=== PATIENT | female | born 1940 | race Caucasian/White ===

== ENCOUNTER 2016-12-19 11:01 | Emergency (ER) | payer MEDICARE, OTHER ==
[~2016-12-19 11:01] MED LIST: /BENA10TA OR; AMBI5TAB OR; AMBI5TAB PO; AMLO5TAB2 PO; ASPI1TAB PO; ASPI81TA45 OR; COLA100C PO; COLA100C2 PO; EVISTA PO; FURO20TA2 PO; GABA-283 PO; HYDR25TA6 OR; LASI20TA PO; LOSA25TA8 PO; MULTIVIT PO; NEUR400C OR; NEUR600T PO; NEXI20CA PO; NEXI40CA PO; NORT25CA2 OR; NORT25CA2 PO; Nebulizer INH; OMEP20TA7 OR; PEG1POW PO; PERC7.5T12 PO; RISATAB3 PO; TIZA4CAP3 PO; TOPI200T4 PO; TOPI50TA OR; TRAVATAN OU; VICODEN PO; VIMP100T PO; VIMPAT PO; VITA-121 PO; VITA100072 PO; VITAMIN B COMPLE1 PO; VITAMIN D50000 UNT OR; VITMTA PO; VYTO10TA5 OR; ZOCO40TA PO; [UNRECOGNIZED DRUG - CODE] PO; albuterol INH
[2016-12-19] MEDS ORDERED: ACETAMINOPH W/CODEINE #3 TAB UD As Ordered ONE (13:40)
[2016-12-19 13:51] LABS: BASO # 0.2 K/mm3 (0.0-0.2); BASO % 2.3 % (0.0-1.0); EOS # 0.2 K/mm3 (0.0-0.50); EOS % 2.2 % (0.0-3.0); LARGE UNSTAINED CELL # 0.2 K/mm3 (0.0-0.4); LARGE UNSTAINED CELL % 2.1 % (0.0-4.0); LYMPH # 2.8 K/mm3 (1.5-4.5); LYMPH % 30.6 % (24.0-44.0); MEAN CORPUSCULAR HEMOGLOBIN 26.7 pg (27.0-33.0); MEAN CORPUSCULAR VOLUME 88.7 fl (80.0-96.0); MONO # 0.4 K/mm3 (0.0-0.8); MONO % 4.7 % (0.0-5.0); NEUTROPHILS % 58.2 % (36.0-66.0); PLATELET COUNT, AUTOMATED 407 k/mm3 (150-450); WHITE BLOOD COUNT 8.6 K/mm3 (4.0-10.0)
[2016-12-19 13:53] LABS: ALBUMIN 3.1 GM/DL (3.2-5.2); ALBUMIN/GLOBULIN RATIO 0.79 (1.00-1.93); ALKALINE PHOSPHATASE 182 U/L (45-117); ALT/SGPT 14 U/L (12-78); AMYLASE 44 U/L (25-115); ANION GAP 8 MEQ/L (8-16); AST/SGOT 8 U/L (15-37); BILIRUBIN,DIRECT < 0.1 MG/DL (0.0-0.2); BILIRUBIN,TOTAL 0.2 MG/DL (0.2-1.0); BLOOD UREA NITROGEN 16 MG/DL (7-18); CALCIUM LEVEL 9.1 MG/DL (8.8-10.2); CARBON DIOXIDE LEVEL 25 MEQ/L (21-32); CHLORIDE LEVEL 110 MEQ/L (98-107); CREATININE FOR GFR 1.08 MG/DL (0.55-1.02); GLOMERULAR FILTRATION RATE 52.5 (>39); GLUCOSE, FASTING 98 MG/DL (83-110); SODIUM LEVEL 143 MEQ/L (136-145)
[2016-12-19] MEDS ORDERED: ISOVUE-370 76% 100ML VIAL (Q9967) As Ordered ONE (14:32)
[2016-12-19 14:44] LABS: ERYTHROCYTE SEDIMENTATION RATE 60 mm/hr (0-30)
[2016-12-19] MEDS ORDERED: diphenhydrAMINE INJ 50MG/ML VIAL (J1200) As Ordered ONE (14:55)
[2016-12-19] MEDS ORDERED: methylPREDNISolone INJ 125 MG/2 ML VIAL (J2930) As Ordered ONE (14:55)
[2016-12-19] MEDS ORDERED: FAMOTIDINE/NS 20 MG/50 ML BAG (S0028) As Ordered ONE (14:55)
--- NOTE | 2016-12-19 16:05 | REP ---
CT study of the abdomen and pelvis with IV but without oral contrast: History: Abdominal pain. Comparison CT study is from 09/18/2016. CT contrast dose: 100 mL of Isovue-[address] findings: Preliminary digital early breastfeeding care specialist radiograph shows an unremarkable bowel gas pattern. There is an area of low density adjacent the falciform ligament consistent with focal fatty infiltration. This is slightly more prominent in size but otherwise unchanged from 06/02/[address] study. No other focal liver lesion is seen. Spleen is unremarkable. No adrenal lesion is seen on either side. The gallbladder shows no abnormality. No pancreatic abnormality is seen. The kidneys enhance symmetrically and are morphologically intact. A normal appendix is seen. There is a broad right paraumbilical ventral hernia with diastases of the rectus abdominis muscle. This is unchanged. Some postoperative fibrosis is seen along the anterior abdominal wall midline. A left lower quadrant colostomy is seen with a parastomal hernia containing a loop of adjacent small intestine. Urinary bladder is intact. Small and large intestinal bowel loops are otherwise unremarkable. There is some residual stool in the rectum. The patient status post hysterectomy. No bony destructive lesion is seen. Impression: Postoperative changes including left colonic resection and left lower quadrant colostomy. Right ventral hernia broad-based unchanged. No acute abdominal abnormality. Normal appendix seen. There is an area of focal fatty infiltration in the liver unchanged. Signed by Angelito Romero MD 12/19/2016 04:32 P
--- NOTE | 2016-12-19 16:10 | EDDOCDS ---
Nurse's Notes [facility] Name: Corry Munroe Age: 76 yrs Sex: Female : 1940 Arrival Date: 12/19/2016 Time: 11:01 Bed I3 / M3 Private MD: Jimi Macias MD Diagnosis: Cellulitis of abdominal wall-SUPERFICIAL;Generalized abdominal pain Presentation: 12/19 11:11 Presenting complaint: Patient states: thinks wound on abdomen is going to open. Reports kr3 noticed redness to area several days ago. Had surgery August,. Adult Sepsis Screening: The patient does not have new or worsening altered mentation. Patient's respiratory rate is less than 22. Systolic blood pressure is greater than 100. Patient has a qSOFA score of 0- Negative Sepsis Screen. Suicide/Homicide risk assessment- the patient denies having any suicidal and/or homicidal ideations and does not present with any other emotional, behavioral or mental health complaints. Status: Patient is not a patient services rep or dependent. Transition of care: patient was not received from another setting of care. 11:11 Acuity: MILAGROS Level 3 kr3 11:11 Method Of Arrival: Walkin/Carried/Asstd kr3 Triage Assessment: 11:14 General: Appears in no apparent distress, Behavior is appropriate for age, cooperative. kr3 Pain: Location: abdomen Pain currently is 10 out of 10 on a pain scale. GI: Reports colostomy draining well Denies nausea, vomiting. Derm: Skin is normal, small area of redness incision line abdomen. Historical: - Allergies: isotope; PENICILLINS; - Home Meds: 1. Ambien 5 mg Oral tab 1 tab nightly 2. amlodipine 5 mg Oral tab 1 tab once daily 3. aspirin 81 mg Oral chew 1 tab once daily 4. furosemide 20 mg Oral tab 1 tab once daily 5. losartan 25 mg oral tab 1 tab 2 times per day 6. multivitamin Oral tab 1 tab daily 7. Neurontin 600 mg Oral tab 1 tab 3 times per day 8. Nexium 40 mg Oral cpDR 1 cap 2 times per day 9. nortriptyline 25 mg Oral cap 1 cap 2 times per day 10. topiramate 100 mg oral tab 2 tabs 2 times per day 11. Vimpat 100 mg oral tab 1 tab 2 times per day 12. Visine Tears 1-0.2-0.2 % ophthalmic drop as needed 13. Vitamin B-12 1,000 mcg Oral tab 1000 mcg daily 14. Vitamin D3 1,000 unit oral tab daily 15. Zocor 40 mg Oral tab 1 tab once daily - PMHx: Chronic Back pain; Epilepsy; GERD; Hypercholesterolemia; Hypertension; Migraine Headaches; TIA; - PSHx: Bowel resection; Colostomy Construction; - Social history: Smoking status: Patient states former smoker of tobacco. No barriers to communication noted, The patient speaks fluent Persian, Speaks appropriately for age. - Family history: Not pertinent. - : The pt / caregiver states he / she is not on anticoagulants. Home medication list is obtained from the patient. - Exposure Risk Screening:: None identified. Screenin:41 Screening information is obtained from the patient. Primary language is Persian. Fall jam1 risk: No risks identified. Assistance ADL's: requires no assistance with activities of daily living. Abuse/DV Screen: The patient / caregiver reports he/she is: not in a situation that causes fear, pain or injury. Nutritional screening: No deficits noted. Exposure Risk Screening: None identified. Advance Directives: Currently, there is a health care proxy, XAVIER . There is no active DNR order. There is a living will, but a copy is not available at this time. There is an active Power of Marketing Proposal Coordinator, XAVIER GOOD . Advance directive information has been placed on a prior [facility] medical record, but the patient/ family does not know when. Further advance directive information is declined. home support is adequate. Assessment: 13:15 General: Appears uncomfortable, Behavior is appropriate for age, cooperative. srm Neurological: No deficits noted. EENT: No deficits noted. GI: Abdomen is non- distended Bowel sounds present X 4 quads. Abd is soft X 4 quads Abd is tender to palpation in epigastric area round area to upper midline incision area. wound center dark in color. 14:51 General: Appears in no apparent distress, comfortable, Behavior is appropriate for age, ms18 cooperative, pleasant, PT returned from CT at this time. Will continue to monitor pt . Neurological: Level of Consciousness is awake, alert, obeys commands, Oriented to person, place, time. Respiratory: Airway is patent is compromised Respiratory effort is even, unlabored. Derm: Skin is pink, warm & dry. 15:59 General: Appears in no apparent distress, comfortable, Behavior is appropriate for age, ms18 cooperative, pleasant. Pain: Location: epigastric area. Neurological: No deficits noted. Respiratory: No deficits noted. Derm: Skin is pink, warm & dry. Vital Signs: 11:03 BP 181 / 67; Pulse 115; Resp 20; Temp 98.9(O); Pulse Ox 100% ; Weight 76.66 kg; Height cmb 5 ft. 1 in. (154.94 cm); Pain 10/10; 15:37 BP 181 / 78; Pulse 73; Resp 20; Temp 96.7; Pulse Ox 98% ; Pain 9/10; jam1 11:03 Body Mass Index 31.93 (76.66 kg, 154.94 cm) cmb Vitals: 11:03 Log In Time: December 19, 2016 at 11:01. RN notified that patient meets Red Flag cmb criteria. ED Course: 11:02 Patient visited by Bee Leigh. cmb 11:02 Jimi Macias is Private Physician. cmb 11:02 Patient moved to Waiting cmb 11:06 Patient moved to Pre RCE cmb 11:13 Triage Initiated kr3 12:21 Patient visited by Terra Recio RN. ead 12:21 Patient moved to Triage 3 kr3 12:44 Patient moved to I7 / 29 mcp 12:45 Patient moved to I3 / M3 jam1 13:01 [facility] Mag[facility]. dt4 13:01 Caitlin Simmons MD is Attending Physician. dt4 13:01 Patient visited by Isa Magdaleno PA-C. dt4 13:15 The patient / caregiver is instructed regarding the plan of care and ED course. srm Accompanied by Family Member, Patient has correct armband on for positive identification. Placed in gown. Bed in low position. Call light in reach. Side rails up X 1. 13:15 Inserted saline lock: 20 gauge in right antecubital area and blood collected. srm 13:15 Missed attempts: 20 gauge in left forearm. srm 13:17 Patient visited by Katelyn Nelson RN. srm 13:29 Amylase Sent. srm 13:29 Basic Metabolic Profile Sent. srm 13:29 CBC with Diff Sent. srm 13:29 Lipase Sent. srm 13:29 Liver Profile Sent. srm 13:39 C REACTIVE PROTEIN QUANTITATIV Sent. srm 13:39 ERYTHROCYTE SEDIMENTATION RATE Sent. srm 14:51 Patient visited by Alaina Whittaker RN. ms18 15:47 Bed in low position. Call light in reach. Side rails up X2. Adult w/ patient. jam1 15:59 Property :Personal belongings accompany Pt. ms18 15:59 Discontinued IV lock intact, bleeding controlled, pressure dressing applied, No ms18 redness/swelling at site. No procedures done that require assistance. 16:07 Patient visited by Alaina Whittaker RN. ms18 Administered Medications: 13:43 Drug: Acetaminophen-Codeine 1 tabs [acetaminophen 300 mg-codeine 30 mg tablet (1 tabs)] srm Route: PO; 15:07 Drug: diphenhydrAMINE 50 mg [diphenhydramine 50 mg/mL injection solution (1 mL)] Route: ms18 IVP; Site: right antecubital; 15:07 Drug: Solu-MEDROL 125 mg [Solu-Medrol 500 mg intravenous solution (125 mg)] Route: IVP; ms18 Site: right antecubital; 15:07 Drug: Famotidine 20 mg [famotidine 10 mg/mL intravenous solution] Route: IVPB; Infused ms18 Over: 30 mins; Site: right antecubital; Order Results: Lab Order: Amylase; SPEC'M 12/19/16 13:12 Test: AMYLASE; Value: 44; Range: 25-115; Units: U/L; Status: F Lab Order: Basic Metabolic Profile; SPEC'M 12/19/16 13:12 Test: GLUCOSE, FASTING; Value: 98; Range: 83-110; Units: MG/DL; Status: F Test: BLOOD UREA NITROGEN; Value: 16; Range: 7-18; Units: MG/DL; Status: F Test: CREATININE FOR GFR; Value: 1.08; Range: 0.55-1.02; Abnormal: Above high normal; Units: MG/DL; Status: F Test: GLOMERULAR FILTRATION RATE; Value: 52.5; Range: >39; Status: F Test: SODIUM LEVEL; Value: 143; Range: 136-145; Units: MEQ/L; Status: F Test: POTASSIUM SERUM; Value: 4.0; Range: 3.5-5.1; Units: MEQ/L; Status: F Test: CHLORIDE LEVEL; Value: 110; Range: 98-107; Abnormal: Above high normal; Units: MEQ/L; Status: F Test: CARBON DIOXIDE LEVEL; Value: 25; Range: 21-32; Units: MEQ/L; Status: F Test: ANION GAP; Value: 8; Range: 8-16; Units: MEQ/L; Status: F Test: CALCIUM LEVEL; Value: 9.1; Range: 8.8-10.2; Units: MG/DL; Status: F Test Note: ; Units are mL/min/1.73 m2 Chronic Kidney Disease Staging per NKF: Stage I & II GFR >=60 Normal to Mildly Decreased Stage III GFR 30-59 Moderately Decreased Stage IV GFR 15-29 Severely Decreased Stage V GFR <15 Very Little GFR Left ESRD GFR <15 on BIOMEDICAL ENGINEERING AIDE Lab Order: CBC with Diff; SPEC'M 12/19/16 13:12 Test: WHITE BLOOD COUNT; Value: 8.6; Range: 4.0-10.0; Units: K/mm3; Status: F Test: RED BLOOD COUNT; Value: 4.36; Range: 4.00-5.40; Units: M/mm3; Status: F Test: HEMOGLOBIN; Value: 11.6; Range: 12.0-16.0; Abnormal: Below low normal; Units: g/dl; Status: F Test: HEMATOCRIT; Value: 38.7; Range: 36.0-47.0; Units: %; Status: F Test: MEAN CORPUSCULAR VOLUME; Value: 88.7; Range: 80.0-96.0; Units: fl; Status: F Test: MEAN CORPUSCULAR HEMOGLOBIN; Value: 26.7; Range: 27.0-33.0; Abnormal: Below low normal; Units: pg; Status: F Test: MEAN CORPUSCULAR HGB CONC; Value: 30.0; Range: 32.0-36.5; Abnormal: Below low normal; Units: g/dl; Status: F Test: RED CELL DISTRIBUTION WIDTH; Value: 16.0; Range: 11.5-14.5; Abnormal: Above high normal; Units: %; Status: F Test: PLATELET COUNT, AUTOMATED; Value: 407; Range: 150-450; Units: k/mm3; Status: F Test: NEUTROPHILS %; Value: 58.2; Range: 36.0-66.0; Units: %; Status: F Test: LYMPH %; Value: 30.6; Range: 24.0-44.0; Units: %; Status: F Test: MONO %; Value: 4.7; Range: 0.0-5.0; Units: %; Status: F Test: EOS %; Value: 2.2; Range: 0.0-3.0; Units: %; Status: F Test: BASO %; Value: 2.3; Range: 0.0-1.0; Abnormal: Above high normal; Units: %; Status: F Test: LARGE UNSTAINED CELL %; Value: 2.1; Range: 0.0-4.0; Units: %; Status: F Test: NEUTROPHILS #; Value: 5.0; Range: 1.8-7.7; Units: K/mm3; Status: F Test: LYMPH #; Value: 2.8; Range: 1.5-4.5; Units: K/mm3; Status: F Test: MONO #; Value: 0.4; Range: 0.0-0.8; Units: K/mm3; Status: F Test: EOS #; Value: 0.2; Range: 0.0-0.50; Units: K/mm3; Status: F Test: BASO #; Value: 0.2; Range: 0.0-0.2; Units: K/mm3; Status: F Test: LARGE UNSTAINED CELL #; Value: 0.2; Range: 0.0-0.4; Units: K/mm3; Status: F Lab Order: Lipase; SPEC'M 12/19/16 13:12 Test: LIPASE; Value: 155; Range: 73-393; Units: U/L; Status: F Lab Order: Liver Profile; SPEC'M 12/19/16 13:12 Test: AST/SGOT; Value: 8; Range: 15-37; Abnormal: Below low normal; Units: U/L; Status: F Test: ALT/SGPT; Value: 14; Range: 12-78; Units: U/L; Status: F Test: ALKALINE PHOSPHATASE; Value: 182; Range: 45-117; Abnormal: Above high normal; Units: U/L; Status: F Test: BILIRUBIN,TOTAL; Value: 0.2; Range: 0.2-1.0; Units: MG/DL; Status: F Test: BILIRUBIN,DIRECT; Value: < 0.1; Range: 0.0-0.2; Units: MG/DL; Status: F Test: TOTAL PROTEIN; Value: 7.0; Range: 6.4-8.2; Units: GM/DL; Status: F Test: ALBUMIN; Value: 3.1; Range: 3.2-5.2; Abnormal: Below low normal; Units: GM/DL; Status: F Test: ALBUMIN/GLOBULIN RATIO; Value: 0.79; Range: 1.00-1.93; Abnormal: Below low normal; Status: F Lab Order: ERYTHROCYTE SEDIMENTATION RATE; SPEC'M 12/19/16 13:12 Test: ERYTHROCYTE SEDIMENTATION RATE; Value: 60; Range: 0-30; Abnormal: Above high normal; Units: mm/hr; Status: F Lab Order: C REACTIVE PROTEIN QUANTITATIV; SPEC'M 12/19/16 13:12 Test: C REACTIVE PROTEIN QUANTITATIV; Value: 1.32; Range: 0.00-0.30; Abnormal: Above high normal; Units: MG/DL; Status: F Outcome: 15:47 Discharge ordered by Provider. dt4 15:59 Discharge Assessment: Patient awake, alert and oriented x 3. No cognitive and/or ms18 functional deficits noted. Patient verbalized understanding of disposition instructions. patient administered narcotics - yes. Pt provided with safe discharge. The following High Risk Discharge criteria are identified: None. Discharged to home ambulatory, with significant other. Condition: good Condition: stable Condition: improved. Discharge instructions given to patient, Instructed on discharge instructions, follow up and referral plans. medication usage, Demonstrated understanding of instructions, medications, Pt was receptive of discharge instructions/ teaching. Prescriptions given X 2. CT Study completed. 16:09 Patient left the ED. ms18 Signatures: Katelyn Nelson, RN Negar Vizcaino RN Britany Sullivan mcp, IBRAHIMA GEM STONE CUTTER jam1 Angelina YapRN RN [id number] Bee Leigh EmilyRN Isa Peters, PA-C PA-C dt4 Whittaker,Alaina,RN RN ms18 MTDD
--- NOTE | 2016-12-19 16:10 | EDDOCDS ---
Physician Documentation [facility] Name: Corry Munroe Age: 76 yrs Sex: Female : 1940 Arrival Date: 12/19/2016 Time: 11:01 Bed I3 / M3 Private MD: Jimi Macias MD Disposition: 12/19/16 15:47 Discharged to Home/Self Care. Impression: Cellulitis of abdominal wall - SUPERFICIAL, Generalized abdominal pain. - Condition is Stable. - Discharge Instructions: Abdominal Pain, Adult, Cellulitis. - Prescriptions for Clindamycin HCl 300 mg Oral Capsule - take 1 capsule by ORAL route every 6 hours; 40 capsule. Tylenol- Codeine #3 300-30 mg Oral Tablet - take 1 tablet by ORAL route every 6 hours As needed MDD: 4 tabs; 20 tablet. - Medication Reconciliation, Local Pharmacy Hours form. - Follow up: Emergency Department; When: As needed; Reason: Worsening of conditions. Follow up: Private Physician; When: 2 - 3 days; Reason: Wound/Symptom Recheck, Recheck today's complaints, Continuance of care. - Problem is new. - Symptoms are unchanged. Historical: - Allergies: isotope; PENICILLINS; - Home Meds: 1. Ambien 5 mg Oral tab 1 tab nightly 2. amlodipine 5 mg Oral tab 1 tab once daily 3. aspirin 81 mg Oral chew 1 tab once daily 4. furosemide 20 mg Oral tab 1 tab once daily 5. losartan 25 mg oral tab 1 tab 2 times per day 6. multivitamin Oral tab 1 tab daily 7. Neurontin 600 mg Oral tab 1 tab 3 times per day 8. Nexium 40 mg Oral cpDR 1 cap 2 times per day 9. nortriptyline 25 mg Oral cap 1 cap 2 times per day 10. topiramate 100 mg oral tab 2 tabs 2 times per day 11. Vimpat 100 mg oral tab 1 tab 2 times per day 12. Visine Tears 1-0.2-0.2 % ophthalmic drop as needed 13. Vitamin B-12 1,000 mcg Oral tab 1000 mcg daily 14. Vitamin D3 1,000 unit oral tab daily 15. Zocor 40 mg Oral tab 1 tab once daily - PMHx: Chronic Back pain; Epilepsy; GERD; Hypercholesterolemia; Hypertension; Migraine Headaches; TIA; - PSHx: Bowel resection; Colostomy Construction; - Social history: Smoking status: Patient states former smoker of tobacco. No barriers to communication noted, The patient speaks fluent Yakut, Speaks appropriately for age. - Family history: Not pertinent. - : The pt / caregiver states he / she is not on anticoagulants. Home medication list is obtained from the patient. - Exposure Risk Screening:: None identified. Vital Signs: 12/19 11:03 BP 181 / 67; Pulse 115; Resp 20; Temp 98.9(O); Pulse Ox 100% ; Weight 76.66 kg / 169.01 cmb lbs; Height 5 ft. 1 in. (154.94 cm); Pain 10/10; 15:37 BP 181 / 78; Pulse 73; Resp 20; Temp 96.7; Pulse Ox 98% ; Pain 9/10; jam1 11:03 Body Mass Index 31.93 (76.66 kg, 154.94 cm) cmb MDM: 11:52 Undress patient appropriately for examination ordered. sd1 11:53 Amylase Ordered. EDMS 11:53 Basic Metabolic Profile Ordered. EDMS 11:53 CBC with Diff Ordered. EDMS 11:53 Lipase Ordered. EDMS 11:53 Liver Profile Ordered. EDMS 11:53 NOTHING BY MOUTH+DIET ordered. EDMS 11:53 ECG WITH READING ER PHYS+CARDIAG ordered. EDMS 13:24 IV Saline Lock ordered. dt4 13:24 Acetaminophen-Codeine 300 mg-30 mg 1 tabs PO once ordered. dt4 13:30 ERYTHROCYTE SEDIMENTATION RATE Ordered. EDMS 13:30 C REACTIVE PROTEIN QUANTITATIV Ordered. EDMS 13:38 ED course: PT SEEN IN ED AND ADMITTED FOR BOWEL PERFORATION ON 09/05/16. HAD ABDOMINAL dt4 SURGERY AND PLACEMENT OF OSTOMY AT THAT TIME. PT STATES NO ISSUES WITH THIS UNTIL 1-2 DAYS AGO. STATES NOW HAVING ABDOMINAL PAIN AND THIS MORNING, NOTED DISCOLORATION OVER HER INCISION SITE THAT IS VERY TENDER. DENIES ANY DRAINAGE, NAUSEA/VOMITING, FEVER. . 14:18 CT ABD & PELVIS: IV Contrast Only Ordered. EDMS 14:44 diphenhydrAMINE 50 mg IVP once ordered. dt4 14:44 Solu-MEDROL 125 mg IVP once ordered. dt4 14:44 Famotidine 20 mg IVPB once over 30 mins; dilute in 50mL of NS ordered. dt4 16:01 Financial registration complete. zo Administered Medications: 13:43 Drug: Acetaminophen-Codeine 1 tabs [acetaminophen 300 mg-codeine 30 mg tablet (1 tabs)] srm Route: PO; 15:07 Drug: diphenhydrAMINE 50 mg [diphenhydramine 50 mg/mL injection solution (1 mL)] Route: ms18 IVP; Site: right antecubital; 15:07 Drug: Solu-MEDROL 125 mg [Solu-Medrol 500 mg intravenous solution (125 mg)] Route: IVP; ms18 Site: right antecubital; 15:07 Drug: Famotidine 20 mg [famotidine 10 mg/mL intravenous solution] Route: IVPB; Infused ms18 Over: 30 mins; Site: right antecubital; Signatures: Dispatcher [employer] EDMS Caitlin Simmons MD MD sd1 Katelyn Nelson RN RN srm Angelina Yap RN RN kr3 April Nava Diane, PA-C PA-Chrissy dt4 Alaina Whittaker RN RN ms18 The chart was reviewed and I authenticate all verbal orders and agree with the evaluation and treatment provided.Corrections: (The following items were deleted from the chart) 13:27 13:25 C REACTIVE PROTEIN QUANTITATIV+LAB ordered. EDMS EDMS 13:27 13:25 ERYTHROCYTE SEDIMENTATION RATE+LAB ordered. EDMS EDMS MTDD
--- NOTE | 2016-12-19 20:26 | ECGEPIP ---
Stationary ECG Study [facility] - ED Test Date: 2016-12-19 Pat Name: CORETTA BENZ Department: Room: - Gender: F Silk Spotter: : 1940 Requested By: Caitlin Simmons Order Number: [id number] Reading MD: Caitlin Simmons Measurements Intervals [place] Rate: 71 P: 53 MN: 140 QRS: -5 QRSD: 78 T: 13 QT: 346 QTc: 377 Interpretive Statements SINUS RHYTHM WITH FREQUENT VENTRICULAR PREMATURE COMPLEXES WITH OCCASIONAL SUPRAVENTRICULAR PREMATURE COMPLEXES LOW QRS VOLTAGE IN PRECORDIAL LEADS ABNORMAL RHYTHM ECG NSTTW ABNORMALLITY PRWP Electronically Signed On 12-19-2016 20:26:29 EST by Caitlin Simmons
--- NOTE | 2016-12-21 17:11 | EDDOCDS ---
Nurse's Notes [facility] Name: Coretta Munroe Age: 76 yrs Sex: Female : 1940 Arrival Date: 12/19/2016 Time: 11:01 Bed I3 / M3 Private MD: Jimi Macias MD Diagnosis: Cellulitis of abdominal wall-SUPERFICIAL;Generalized abdominal pain Presentation: 12/19 11:11 Presenting complaint: Patient states: thinks wound on abdomen is going to open. Reports kr3 noticed redness to area several days ago. Had surgery August,. Adult Sepsis Screening: The patient does not have new or worsening altered mentation. Patient's respiratory rate is less than 22. Systolic blood pressure is greater than 100. Patient has a qSOFA score of 0- Negative Sepsis Screen. Suicide/Homicide risk assessment- the patient denies having any suicidal and/or homicidal ideations and does not present with any other emotional, behavioral or mental health complaints. Status: Patient is not a servicer travel trailers or dependent. Transition of care: patient was not received from another setting of care. 11:11 Acuity: MILAGROS Level 3 kr3 11:11 Method Of Arrival: Walkin/Carried/Asstd kr3 Triage Assessment: 11:14 General: Appears in no apparent distress, Behavior is appropriate for age, cooperative. kr3 Pain: Location: abdomen Pain currently is 10 out of 10 on a pain scale. GI: Reports colostomy draining well Denies nausea, vomiting. Derm: Skin is normal, small area of redness incision line abdomen. Historical: - Allergies: isotope; PENICILLINS; - Home Meds: 1. Ambien 5 mg Oral tab 1 tab nightly 2. amlodipine 5 mg Oral tab 1 tab once daily 3. aspirin 81 mg Oral chew 1 tab once daily 4. furosemide 20 mg Oral tab 1 tab once daily 5. losartan 25 mg oral tab 1 tab 2 times per day 6. multivitamin Oral tab 1 tab daily 7. Neurontin 600 mg Oral tab 1 tab 3 times per day 8. Nexium 40 mg Oral cpDR 1 cap 2 times per day 9. nortriptyline 25 mg Oral cap 1 cap 2 times per day 10. topiramate 100 mg oral tab 2 tabs 2 times per day 11. Vimpat 100 mg oral tab 1 tab 2 times per day 12. Visine Tears 1-0.2-0.2 % ophthalmic drop as needed 13. Vitamin B-12 1,000 mcg Oral tab 1000 mcg daily 14. Vitamin D3 1,000 unit oral tab daily 15. Zocor 40 mg Oral tab 1 tab once daily - PMHx: Chronic Back pain; Epilepsy; GERD; Hypercholesterolemia; Hypertension; Migraine Headaches; TIA; - PSHx: Bowel resection; Colostomy Construction; - Social history: Smoking status: Patient states former smoker of tobacco. No barriers to communication noted, The patient speaks fluent Occitan, Speaks appropriately for age. - Family history: Not pertinent. - : The pt / caregiver states he / she is not on anticoagulants. Home medication list is obtained from the patient. - Exposure Risk Screening:: None identified. Screenin:41 Screening information is obtained from the patient. Primary language is Occitan. Fall jam1 risk: No risks identified. Assistance ADL's: requires no assistance with activities of daily living. Abuse/DV Screen: The patient / caregiver reports he/she is: not in a situation that causes fear, pain or injury. Nutritional screening: No deficits noted. Exposure Risk Screening: None identified. Advance Directives: Currently, there is a health care proxy, XAVIER . There is no active DNR order. There is a living will, but a copy is not available at this time. There is an active Power of Crime Scene Specialist, XAVIER GOOD . Advance directive information has been placed on a prior [facility] medical record, but the patient/ family does not know when. Further advance directive information is declined. home support is adequate. Assessment: 13:15 General: Appears uncomfortable, Behavior is appropriate for age, cooperative. srm Neurological: No deficits noted. EENT: No deficits noted. GI: Abdomen is non- distended Bowel sounds present X 4 quads. Abd is soft X 4 quads Abd is tender to palpation in epigastric area round area to upper midline incision area. wound center dark in color. 14:51 General: Appears in no apparent distress, comfortable, Behavior is appropriate for age, ms18 cooperative, pleasant, PT returned from CT at this time. Will continue to monitor pt . Neurological: Level of Consciousness is awake, alert, obeys commands, Oriented to person, place, time. Respiratory: Airway is patent is compromised Respiratory effort is even, unlabored. Derm: Skin is pink, warm & dry. 15:59 General: Appears in no apparent distress, comfortable, Behavior is appropriate for age, ms18 cooperative, pleasant. Pain: Location: epigastric area. Neurological: No deficits noted. Respiratory: No deficits noted. Derm: Skin is pink, warm & dry. Vital Signs: 11:03 BP 181 / 67; Pulse 115; Resp 20; Temp 98.9(O); Pulse Ox 100% ; Weight 76.66 kg; Height cmb 5 ft. 1 in. (154.94 cm); Pain 10/10; 15:37 BP 181 / 78; Pulse 73; Resp 20; Temp 96.7; Pulse Ox 98% ; Pain 9/10; jam1 11:03 Body Mass Index 31.93 (76.66 kg, 154.94 cm) cmb Vitals: 11:03 Log In Time: December 19, 2016 at 11:01. RN notified that patient meets Red Flag cmb criteria. ED Course: 11:02 Patient visited by Bee Leigh. cmb 11:02 Jimi Macias is Private Physician. cmb 11:02 Patient moved to Waiting cmb 11:06 Patient moved to Pre RCE cmb 11:13 Triage Initiated kr3 12:21 Patient visited by Terra Recio RN. ead 12:21 Patient moved to Triage 3 kr3 12:44 Patient moved to I7 / 29 mcp 12:45 Patient moved to I3 / M3 jam1 13:01 [facility]. dt4 13:01 Caitlin Simmons MD is Attending Physician. dt4 13:01 Patient visited by Isa Magdaleno PA-C. dt4 13:15 The patient / caregiver is instructed regarding the plan of care and ED course. srm Accompanied by Family Member, Patient has correct armband on for positive identification. Placed in gown. Bed in low position. Call light in reach. Side rails up X 1. 13:15 Inserted saline lock: 20 gauge in right antecubital area and blood collected. srm 13:15 Missed attempts: 20 gauge in left forearm. srm 13:17 Patient visited by Katelyn Nelson RN. srm 13:29 Amylase Sent. srm 13:29 Basic Metabolic Profile Sent. srm 13:29 CBC with Diff Sent. srm 13:29 Lipase Sent. srm 13:29 Liver Profile Sent. srm 13:39 C REACTIVE PROTEIN QUANTITATIV Sent. srm 13:39 ERYTHROCYTE SEDIMENTATION RATE Sent. srm 14:51 Patient visited by Alaina Whittaker RN. ms18 15:47 Bed in low position. Call light in reach. Side rails up X2. Adult w/ patient. jam1 15:59 Property :Personal belongings accompany Pt. ms18 15:59 Discontinued IV lock intact, bleeding controlled, pressure dressing applied, No ms18 redness/swelling at site. No procedures done that require assistance. 16:07 Patient visited by Alaina Whittaker RN. ms18 16:15 [facility] Payment Agreement was scanned into [employer] and attached to record. zo 16:44 CT ABD & PELVIS: IV Contrast Only Returned. EDMS 21:17 EKG-ADULT Returned. EDMS 12/20 03:38 T-Sheet-- Draft Copy was scanned into [employer] and attached to record. hs2 10:01 ECG/EKG was scanned into [employer] and attached to record. gb 10:02 Radiology Report was scanned into [employer] and attached to record. gb Administered Medications: 12/19 13:43 Drug: Acetaminophen-Codeine 1 tabs [acetaminophen 300 mg-codeine 30 mg tablet (1 tabs)] srm Route: PO; 15:07 Drug: diphenhydrAMINE 50 mg [diphenhydramine 50 mg/mL injection solution (1 mL)] Route: ms18 IVP; Site: right antecubital; 15:07 Drug: Solu-MEDROL 125 mg [Solu-Medrol 500 mg intravenous solution (125 mg)] Route: IVP; ms18 Site: right antecubital; 15:07 Drug: Famotidine 20 mg [famotidine 10 mg/mL intravenous solution] Route: IVPB; Infused ms18 Over: 30 mins; Site: right antecubital; Order Results: Lab Order: Amylase; SPEC'M 12/19/16 13:12 Test: AMYLASE; Value: 44; Range: 25-115; Units: U/L; Status: F Lab Order: Basic Metabolic Profile; SPEC'M 12/19/16 13:12 Test: GLUCOSE, FASTING; Value: 98; Range: 83-110; Units: MG/DL; Status: F Test: BLOOD UREA NITROGEN; Value: 16; Range: 7-18; Units: MG/DL; Status: F Test: CREATININE FOR GFR; Value: 1.08; Range: 0.55-1.02; Abnormal: Above high normal; Units: MG/DL; Status: F Test: GLOMERULAR FILTRATION RATE; Value: 52.5; Range: >39; Status: F Test: SODIUM LEVEL; Value: 143; Range: 136-145; Units: MEQ/L; Status: F Test: POTASSIUM SERUM; Value: 4.0; Range: 3.5-5.1; Units: MEQ/L; Status: F Test: CHLORIDE LEVEL; Value: 110; Range: 98-107; Abnormal: Above high normal; Units: MEQ/L; Status: F Test: CARBON DIOXIDE LEVEL; Value: 25; Range: 21-32; Units: MEQ/L; Status: F Test: ANION GAP; Value: 8; Range: 8-16; Units: MEQ/L; Status: F Test: CALCIUM LEVEL; Value: 9.1; Range: 8.8-10.2; Units: MG/DL; Status: F Test Note: ; Units are mL/min/1.73 m2 Chronic Kidney Disease Staging per NKF: Stage I & II GFR >=60 Normal to Mildly Decreased Stage III GFR 30-59 Moderately Decreased Stage IV GFR 15-29 Severely Decreased Stage V GFR <15 Very Little GFR Left ESRD GFR <15 on PAVING BLOCK CUTTER Lab Order: CBC with Diff; SPEC'M 12/19/16 13:12 Test: WHITE BLOOD COUNT; Value: 8.6; Range: 4.0-10.0; Units: K/mm3; Status: F Test: RED BLOOD COUNT; Value: 4.36; Range: 4.00-5.40; Units: M/mm3; Status: F Test: HEMOGLOBIN; Value: 11.6; Range: 12.0-16.0; Abnormal: Below low normal; Units: g/dl; Status: F Test: HEMATOCRIT; Value: 38.7; Range: 36.0-47.0; Units: %; Status: F Test: MEAN CORPUSCULAR VOLUME; Value: 88.7; Range: 80.0-96.0; Units: fl; Status: F Test: MEAN CORPUSCULAR HEMOGLOBIN; Value: 26.7; Range: 27.0-33.0; Abnormal: Below low normal; Units: pg; Status: F Test: MEAN CORPUSCULAR HGB CONC; Value: 30.0; Range: 32.0-36.5; Abnormal: Below low normal; Units: g/dl; Status: F Test: RED CELL DISTRIBUTION WIDTH; Value: 16.0; Range: 11.5-14.5; Abnormal: Above high normal; Units: %; Status: F Test: PLATELET COUNT, AUTOMATED; Value: 407; Range: 150-450; Units: k/mm3; Status: F Test: NEUTROPHILS %; Value: 58.2; Range: 36.0-66.0; Units: %; Status: F Test: LYMPH %; Value: 30.6; Range: 24.0-44.0; Units: %; Status: F Test: MONO %; Value: 4.7; Range: 0.0-5.0; Units: %; Status: F Test: EOS %; Value: 2.2; Range: 0.0-3.0; Units: %; Status: F Test: BASO %; Value: 2.3; Range: 0.0-1.0; Abnormal: Above high normal; Units: %; Status: F Test: LARGE UNSTAINED CELL %; Value: 2.1; Range: 0.0-4.0; Units: %; Status: F Test: NEUTROPHILS #; Value: 5.0; Range: 1.8-7.7; Units: K/mm3; Status: F Test: LYMPH #; Value: 2.8; Range: 1.5-4.5; Units: K/mm3; Status: F Test: MONO #; Value: 0.4; Range: 0.0-0.8; Units: K/mm3; Status: F Test: EOS #; Value: 0.2; Range: 0.0-0.50; Units: K/mm3; Status: F Test: BASO #; Value: 0.2; Range: 0.0-0.2; Units: K/mm3; Status: F Test: LARGE UNSTAINED CELL #; Value: 0.2; Range: 0.0-0.4; Units: K/mm3; Status: F Lab Order: Lipase; SPEC'M 12/19/16 13:12 Test: LIPASE; Value: 155; Range: 73-393; Units: U/L; Status: F Lab Order: Liver Profile; SPEC'M 12/19/16 13:12 Test: AST/SGOT; Value: 8; Range: 15-37; Abnormal: Below low normal; Units: U/L; Status: F Test: ALT/SGPT; Value: 14; Range: 12-78; Units: U/L; Status: F Test: ALKALINE PHOSPHATASE; Value: 182; Range: 45-117; Abnormal: Above high normal; Units: U/L; Status: F Test: BILIRUBIN,TOTAL; Value: 0.2; Range: 0.2-1.0; Units: MG/DL; Status: F Test: BILIRUBIN,DIRECT; Value: < 0.1; Range: 0.0-0.2; Units: MG/DL; Status: F Test: TOTAL PROTEIN; Value: 7.0; Range: 6.4-8.2; Units: GM/DL; Status: F Test: ALBUMIN; Value: 3.1; Range: 3.2-5.2; Abnormal: Below low normal; Units: GM/DL; Status: F Test: ALBUMIN/GLOBULIN RATIO; Value: 0.79; Range: 1.00-1.93; Abnormal: Below low normal; Status: F Lab Order: ERYTHROCYTE SEDIMENTATION RATE; SPEC'M 12/19/16 13:12 Test: ERYTHROCYTE SEDIMENTATION RATE; Value: 60; Range: 0-30; Abnormal: Above high normal; Units: mm/hr; Status: F Lab Order: C REACTIVE PROTEIN QUANTITATIV; SPEC'M 12/19/16 13:12 Test: C REACTIVE PROTEIN QUANTITATIV; Value: 1.32; Range: 0.00-0.30; Abnormal: Above high normal; Units: MG/DL; Status: F Radiology Order: EKG-ADULT Test: EKG-ADULT REASON FOR EXAMINATION: Abdomen Pain; Stationary ECG Study; [facility] - ED; ; Test Date: 2016-12-19; Pat Name: CORETTA MUNROE Department:; Room: -; 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:; : 1940 Requested By: Caitlin Simmons; Order Number: [id number] Reading MD: Caitlin Simmons; Measurements; Intervals [place]; Rate: 71 P: 53; GA: 140 QRS: -5; QRSD: 78 T: 13; QT: 346; QTc: 377; Interpretive Statements; SINUS RHYTHM WITH FREQUENT VENTRICULAR PREMATURE COMPLEXES WITH OCCASIONAL; SUPRAVENTRICULAR PREMATURE COMPLEXES; LOW QRS VOLTAGE IN PRECORDIAL LEADS; ABNORMAL RHYTHM ECG; NSTTW ABNORMALLITY; PRWP; Electronically Signed On 12-19-2016 20:26:29 EST by Caitlin Simmons; Radiology Order: CT ABD & PELVIS: IV Contrast Only Test: CT ABD & PELVIS: IV Contrast Only REASON FOR EXAMINATION: Abdomen Pain; CT study of the abdomen and pelvis with IV but without oral contrast:; ; History: Abdominal pain.; ; Comparison CT study is from 09/18/2016.; ; CT contrast dose: 100 mL of Isovue-370 is administered intravenously.; ; CT findings: 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 There is an area of low density adjacent the falciform ligament; consistent with focal fatty infiltration. This is slightly more prominent in; size but otherwise unchanged from 06/02/[address] study. No other focal; liver lesion is seen. Spleen is unremarkable. No adrenal lesion is seen on; either side. The gallbladder shows no abnormality. No pancreatic abnormality is; seen. The kidneys enhance symmetrically and are morphologically intact. A; normal appendix is seen. There is a broad right paraumbilical ventral hernia; with diastases of the rectus abdominis muscle. This is unchanged. Some; postoperative fibrosis is seen along the anterior abdominal wall midline. A left; lower quadrant colostomy is seen with a parastomal hernia containing a loop of; adjacent small intestine. Urinary bladder is intact. Small and large intestinal; bowel loops are otherwise unremarkable. There is some residual stool in the; rectum. The patient status post hysterectomy. No bony destructive lesion is; seen.; ; Impression:; ; Postoperative changes including left colonic resection and left lower quadrant; colostomy. Right ventral hernia broad-based unchanged. No acute abdominal; abnormality. Normal appendix seen. There is an area of focal fatty infiltration; in the liver unchanged.; ; ; Signed by; Angelito Romero MD 12/19/2016 04:32 P; Outcome: 15:47 Discharge ordered by Provider. dt4 15:59 Discharge Assessment: Patient awake, alert and oriented x 3. No cognitive and/or ms18 functional deficits noted. Patient verbalized understanding of disposition instructions. patient administered narcotics - yes. Pt provided with safe discharge. The following High Risk Discharge criteria are identified: None. Discharged to home ambulatory, with significant other. Condition: good Condition: stable Condition: improved. Discharge instructions given to patient, Instructed on discharge instructions, follow up and referral plans. medication usage, Demonstrated understanding of instructions, medications, Pt was receptive of discharge instructions/ teaching. Prescriptions given X 2. CT Study completed. 16:09 Patient left the ED. ms18 Signatures: Dispatcher [employer] EDMS Katelyn Nelson, RN RN Negar Hameed, RN RN Britany Cooley, IBRAHIMA BUSINESS OWNER/ENGINEER jam1 Laxmi Eric, Reg Reg gb Angelina YapRN RN kr3 April Nava Chelsea cmb Dunaway, Emily, RN RN Isa Mckeon, PA-C PA-C dt4 Alaina Whittaker RN RN ms18 Susi Conde, Reg Reg hs2 Chart Complete [facility]
--- NOTE | 2016-12-21 17:11 | EDDOCDS ---
Physician Documentation [facility] Name: Corry Munroe Age: 76 yrs Sex: Female : 1940 Arrival Date: 12/19/2016 Time: 11:01 Bed I3 / M3 Private MD: Jimi Macias MD Disposition: 12/19/16 15:47 Discharged to Home/Self Care. Impression: Cellulitis of abdominal wall - SUPERFICIAL, Generalized abdominal pain. - Condition is Stable. - Discharge Instructions: Abdominal Pain, Adult, Cellulitis. - Prescriptions for Clindamycin HCl 300 mg Oral Capsule - take 1 capsule by ORAL route every 6 hours; 40 capsule. Tylenol- Codeine #3 300-30 mg Oral Tablet - take 1 tablet by ORAL route every 6 hours As needed MDD: 4 tabs; 20 tablet. - Medication Reconciliation, Local Pharmacy Hours form. - Follow up: Emergency Department; When: As needed; Reason: Worsening of conditions. Follow up: Private Physician; When: 2 - 3 days; Reason: Wound/Symptom Recheck, Recheck today's complaints, Continuance of care. - Problem is new. - Symptoms are unchanged. Historical: - Allergies: isotope; PENICILLINS; - Home Meds: 1. Ambien 5 mg Oral tab 1 tab nightly 2. amlodipine 5 mg Oral tab 1 tab once daily 3. aspirin 81 mg Oral chew 1 tab once daily 4. furosemide 20 mg Oral tab 1 tab once daily 5. losartan 25 mg oral tab 1 tab 2 times per day 6. multivitamin Oral tab 1 tab daily 7. Neurontin 600 mg Oral tab 1 tab 3 times per day 8. Nexium 40 mg Oral cpDR 1 cap 2 times per day 9. nortriptyline 25 mg Oral cap 1 cap 2 times per day 10. topiramate 100 mg oral tab 2 tabs 2 times per day 11. Vimpat 100 mg oral tab 1 tab 2 times per day 12. Visine Tears 1-0.2-0.2 % ophthalmic drop as needed 13. Vitamin B-12 1,000 mcg Oral tab 1000 mcg daily 14. Vitamin D3 1,000 unit oral tab daily 15. Zocor 40 mg Oral tab 1 tab once daily - PMHx: Chronic Back pain; Epilepsy; GERD; Hypercholesterolemia; Hypertension; Migraine Headaches; TIA; - PSHx: Bowel resection; Colostomy Construction; - Social history: Smoking status: Patient states former smoker of tobacco. No barriers to communication noted, The patient speaks fluent Divehi, Speaks appropriately for age. - Family history: Not pertinent. - : The pt / caregiver states he / she is not on anticoagulants. Home medication list is obtained from the patient. - Exposure Risk Screening:: None identified. Vital Signs: 12/19 11:03 BP 181 / 67; Pulse 115; Resp 20; Temp 98.9(O); Pulse Ox 100% ; Weight 76.66 kg / 169.01 cmb lbs; Height 5 ft. 1 in. (154.94 cm); Pain 10/10; 15:37 BP 181 / 78; Pulse 73; Resp 20; Temp 96.7; Pulse Ox 98% ; Pain 9/10; jam1 11:03 Body Mass Index 31.93 (76.66 kg, 154.94 cm) cmb MDM: 11:52 Undress patient appropriately for examination ordered. sd1 11:53 Amylase Ordered. EDMS 11:53 Basic Metabolic Profile Ordered. EDMS 11:53 CBC with Diff Ordered. EDMS 11:53 Lipase Ordered. EDMS 11:53 Liver Profile Ordered. EDMS 11:53 NOTHING BY MOUTH+DIET ordered. EDMS 11:53 ECG WITH READING ER PHYS+CARDIAG ordered. EDMS 13:24 IV Saline Lock ordered. dt4 13:24 Acetaminophen-Codeine 300 mg-30 mg 1 tabs PO once ordered. dt4 13:30 ERYTHROCYTE SEDIMENTATION RATE Ordered. EDMS 13:30 C REACTIVE PROTEIN QUANTITATIV Ordered. EDMS 13:38 ED course: PT SEEN IN ED AND ADMITTED FOR BOWEL PERFORATION ON 09/05/16. HAD ABDOMINAL dt4 SURGERY AND PLACEMENT OF OSTOMY AT THAT TIME. PT STATES NO ISSUES WITH THIS UNTIL 1-2 DAYS AGO. STATES NOW HAVING ABDOMINAL PAIN AND THIS MORNING, NOTED DISCOLORATION OVER HER INCISION SITE THAT IS VERY TENDER. DENIES ANY DRAINAGE, NAUSEA/VOMITING, FEVER. . 14:18 CT ABD & PELVIS: IV Contrast Only Ordered. EDMS 14:44 diphenhydrAMINE 50 mg IVP once ordered. dt4 14:44 Solu-MEDROL 125 mg IVP once ordered. dt4 14:44 Famotidine 20 mg IVPB once over 30 mins; dilute in 50mL of NS ordered. dt4 16:01 Financial registration complete. zo 16:15 [facility] Payment Agreement was scanned into [employer] and attached to record. zo 12/20 03:38 T-Sheet-- Draft Copy was scanned into [employer] and attached to record. hs2 10:01 ECG/EKG was scanned into [employer] and attached to record. gb 10:02 Radiology Report was scanned into [employer] and attached to record. gb Administered Medications: 12/19 13:43 Drug: Acetaminophen-Codeine 1 tabs [acetaminophen 300 mg-codeine 30 mg tablet (1 tabs)] srm Route: PO; 15:07 Drug: diphenhydrAMINE 50 mg [diphenhydramine 50 mg/mL injection solution (1 mL)] Route: ms18 IVP; Site: right antecubital; 15:07 Drug: Solu-MEDROL 125 mg [Solu-Medrol 500 mg intravenous solution (125 mg)] Route: IVP; ms18 Site: right antecubital; 15:07 Drug: Famotidine 20 mg [famotidine 10 mg/mL intravenous solution] Route: IVPB; Infused ms18 Over: 30 mins; Site: right antecubital; Signatures: Dispatcher [employer] EDMS Caitlin Simmons MD MD sd1 Katelyn Nelson RN RN [facility] Laxmi Eric, Reg Reg gb Angelina Yap,MEAGAN RN kr3 April Nava Diane, PA-C PAJuan dt4 Alaina Whittaker RN RN ms18 Susi Conde, Reg Reg hs2 The chart was reviewed and I authenticate all verbal orders and agree with the evaluation and treatment provided.Corrections: (The following items were deleted from the chart) 13: 13:25 C REACTIVE PROTEIN QUANTITATIV+LAB ordered. EDMS EDMS 13: 13:25 ERYTHROCYTE SEDIMENTATION RATE+LAB ordered. EDMS EDMS Attachments: 16:15 [facility] Payment Agreement zo 12/20 03:38 T-Sheet-- Draft Copy hs2 10:01 ECG/EKG gb Chart Complete MTDD
--- NOTE | 2016-12-21 17:11 | EDDOCDS ---
Physician Documentation [facility] Name: Corry Munroe Age: 76 yrs Sex: Female : 1940 Arrival Date: 12/19/2016 Time: 11:01 Bed I3 / M3 Private MD: Jimi Macias MD Disposition: 12/19/16 15:47 Discharged to Home/Self Care. Impression: Cellulitis of abdominal wall - SUPERFICIAL, Generalized abdominal pain. - Condition is Stable. - Discharge Instructions: Abdominal Pain, Adult, Cellulitis. - Prescriptions for Clindamycin HCl 300 mg Oral Capsule - take 1 capsule by ORAL route every 6 hours; 40 capsule. Tylenol- Codeine #3 300-30 mg Oral Tablet - take 1 tablet by ORAL route every 6 hours As needed MDD: 4 tabs; 20 tablet. - Medication Reconciliation, Local Pharmacy Hours form. - Follow up: Emergency Department; When: As needed; Reason: Worsening of conditions. Follow up: Private Physician; When: 2 - 3 days; Reason: Wound/Symptom Recheck, Recheck today's complaints, Continuance of care. - Problem is new. - Symptoms are unchanged. Historical: - Allergies: isotope; PENICILLINS; - Home Meds: 1. Ambien 5 mg Oral tab 1 tab nightly 2. amlodipine 5 mg Oral tab 1 tab once daily 3. aspirin 81 mg Oral chew 1 tab once daily 4. furosemide 20 mg Oral tab 1 tab once daily 5. losartan 25 mg oral tab 1 tab 2 times per day 6. multivitamin Oral tab 1 tab daily 7. Neurontin 600 mg Oral tab 1 tab 3 times per day 8. Nexium 40 mg Oral cpDR 1 cap 2 times per day 9. nortriptyline 25 mg Oral cap 1 cap 2 times per day 10. topiramate 100 mg oral tab 2 tabs 2 times per day 11. Vimpat 100 mg oral tab 1 tab 2 times per day 12. Visine Tears 1-0.2-0.2 % ophthalmic drop as needed 13. Vitamin B-12 1,000 mcg Oral tab 1000 mcg daily 14. Vitamin D3 1,000 unit oral tab daily 15. Zocor 40 mg Oral tab 1 tab once daily - PMHx: Chronic Back pain; Epilepsy; GERD; Hypercholesterolemia; Hypertension; Migraine Headaches; TIA; - PSHx: Bowel resection; Colostomy Construction; - Social history: Smoking status: Patient states former smoker of tobacco. No barriers to communication noted, The patient speaks fluent Czech, Speaks appropriately for age. - Family history: Not pertinent. - : The pt / caregiver states he / she is not on anticoagulants. Home medication list is obtained from the patient. - Exposure Risk Screening:: None identified. Vital Signs: 12/19 11:03 BP 181 / 67; Pulse 115; Resp 20; Temp 98.9(O); Pulse Ox 100% ; Weight 76.66 kg / 169.01 cmb lbs; Height 5 ft. 1 in. (154.94 cm); Pain 10/10; 15:37 BP 181 / 78; Pulse 73; Resp 20; Temp 96.7; Pulse Ox 98% ; Pain 9/10; jam1 11:03 Body Mass Index 31.93 (76.66 kg, 154.94 cm) cmb MDM: 11:52 Undress patient appropriately for examination ordered. sd1 11:53 Amylase Ordered. EDMS 11:53 Basic Metabolic Profile Ordered. EDMS 11:53 CBC with Diff Ordered. EDMS 11:53 Lipase Ordered. EDMS 11:53 Liver Profile Ordered. EDMS 11:53 NOTHING BY MOUTH+DIET ordered. EDMS 11:53 ECG WITH READING ER PHYS+CARDIAG ordered. EDMS 13:24 IV Saline Lock ordered. dt4 13:24 Acetaminophen-Codeine 300 mg-30 mg 1 tabs PO once ordered. dt4 13:30 ERYTHROCYTE SEDIMENTATION RATE Ordered. EDMS 13:30 C REACTIVE PROTEIN QUANTITATIV Ordered. EDMS 13:38 ED course: PT SEEN IN ED AND ADMITTED FOR BOWEL PERFORATION ON 09/05/16. HAD ABDOMINAL dt4 SURGERY AND PLACEMENT OF OSTOMY AT THAT TIME. PT STATES NO ISSUES WITH THIS UNTIL 1-2 DAYS AGO. STATES NOW HAVING ABDOMINAL PAIN AND THIS MORNING, NOTED DISCOLORATION OVER HER INCISION SITE THAT IS VERY TENDER. DENIES ANY DRAINAGE, NAUSEA/VOMITING, FEVER. . 14:18 CT ABD & PELVIS: IV Contrast Only Ordered. EDMS 14:44 diphenhydrAMINE 50 mg IVP once ordered. dt4 14:44 Solu-MEDROL 125 mg IVP once ordered. dt4 14:44 Famotidine 20 mg IVPB once over 30 mins; dilute in 50mL of NS ordered. dt4 16:01 Financial registration complete. zo 16:15 [facility] Payment Agreement was scanned into [employer] and attached to record. zo 12/20 03:38 T-Sheet-- Draft Copy was scanned into [employer] and attached to record. hs2 10:01 ECG/EKG was scanned into [employer] and attached to record. gb 10:02 Radiology Report was scanned into [employer] and attached to record. gb Administered Medications: 12/19 13:43 Drug: Acetaminophen-Codeine 1 tabs [acetaminophen 300 mg-codeine 30 mg tablet (1 tabs)] srm Route: PO; 15:07 Drug: diphenhydrAMINE 50 mg [diphenhydramine 50 mg/mL injection solution (1 mL)] Route: ms18 IVP; Site: right antecubital; 15:07 Drug: Solu-MEDROL 125 mg [Solu-Medrol 500 mg intravenous solution (125 mg)] Route: IVP; ms18 Site: right antecubital; 15:07 Drug: Famotidine 20 mg [famotidine 10 mg/mL intravenous solution] Route: IVPB; Infused ms18 Over: 30 mins; Site: right antecubital; Signatures: Dispatcher [employer] EDMS Caitlin Simmons MD MD sd1 Katelyn Nelson RN RN [facility] Laxmi Eric, Reg Reg gb Angelina Yap,MEAGAN RN kr3 April Nava Diane, PA-C PAJuan dt4 Alaina Whittaker RN RN ms18 Susi Conde, Reg Reg hs2 The chart was reviewed and I authenticate all verbal orders and agree with the evaluation and treatment provided.Corrections: (The following items were deleted from the chart) 13: 13:25 C REACTIVE PROTEIN QUANTITATIV+LAB ordered. EDMS EDMS 13: 13:25 ERYTHROCYTE SEDIMENTATION RATE+LAB ordered. EDMS EDMS Attachments: 16:15 [facility] Payment Agreement zo 12/20 03:38 T-Sheet-- Draft Copy hs2 10:01 ECG/EKG gb Chart Complete MTDD
== END 2016-12-19 16:09 | disposition home or self-care (01) ==
LOC: M ED 11:01
DX: L03.311 Cellulitis of abdominal wall (principal); R10.84 Generalized abdominal pain; M54.9 Dorsalgia, unspecified; G40.909 Epilepsy, unspecified, not intractable, without status epilepticus; K21.9 Gastro-esophageal reflux disease without esophagitis; E78.00 Pure hypercholesterolemia, unspecified; I10 Essential (primary) hypertension; G43.909 Migraine, unspecified, not intractable, without status migrainosus; Z86.73 Personal history of transient ischemic attack (TIA), and cerebral infarction without residual deficits; Z79.82 Long term (current) use of aspirin; Z79.899 Other long term (current) drug therapy; Z88.8 Allergy status to other drugs, medicaments and biological substances; Z88.0 Allergy status to penicillin; Z87.891 Personal history of nicotine dependence
CPT/HCPCS: 36415; 74177; 80048; 80076; 82150; 83690; 85025; 85652; 86140; 93005; 96374; 96375; 99284; J1200; J2930; Q9967

== ENCOUNTER → 2017-02-14 | Outpatient (CLI) | payer MEDICARE, OTHER ==
[~2017-02-14] VITALS: Ht 154.9 cm; Wt 81.2 kg
[~2017-02-14] MED LIST changes: +LIDOCAINE 2% INJ 100 MG/5 ML SDV (FOR ANES.) As Ordered ONE; +MULT1TAB10 PO; +NS 1,000 ML IV SCH; +PROPOFOL 200 MG/20 ML VIAL As Ordered ONE
[2017-02-14 10:12] VITALS: BP 142/60
--- NOTE | 2017-02-14 10:21 | ROOR ---
Patient Name: Corry Munroe Procedure Date: 02/14/2017 9:06 AM Date of : 1940 Age: 76 Room: [facility] Gender: Female Note Status: Finalized Procedure: Colonoscopy via Stoma with Endoscopy of Meliza Pouch Indications: Post surgical follow-up Providers: DO Jaquelin Yu MD: Jimi Macias MD Requesting Provider: Medicines: Propofol per Anesthesia Complications: No immediate complications. Procedure: Pre-Anesthesia Assessment: - Prior to the procedure, a History and Physical was performed, and patient medications and allergies were reviewed. The patient is competent. The risks and benefits of the procedure and the sedation options and risks were discussed with the patient. All questions were answered and informed consent was obtained. Patient identification and proposed procedure were verified by the physician, the nurse, the anesthesiologist and the product support technician in the endoscopy suite. Mental Status Examination: alert and oriented. Airway Examination: normal oropharyngeal airway and neck mobility. Respiratory Examination: clear to auscultation. CV Examination: normal. Prophylactic Antibiotics: The patient does not require prophylactic antibiotics. Prior Anticoagulants: The patient has taken no previous anticoagulant or antiplatelet agents. ASA Grade Assessment: II - A patient with mild systemic disease. After reviewing the risks and benefits, the patient was deemed in satisfactory condition to undergo the procedure. The anesthesia plan was to use monitored anesthesia care (MAC). Immediately prior to administration of medications, the patient was re-assessed for adequacy to receive sedatives. The heart rate, respiratory rate, oxygen saturations, blood pressure, adequacy of pulmonary ventilation, and response to care were monitored throughout the procedure. The physical status of the patient was re-assessed after the procedure. The Colonoscope was introduced through the sigmoid colostomy and advanced to the ascending colon. The colonoscopy was performed without difficulty. The patient tolerated the procedure well. Findings: A few small-mouthed diverticula were found in the sigmoid colon. Estimated blood loss: none. Estimated blood loss: none. The exam was otherwise without abnormality. Impression: - Diverticulosis in the sigmoid colon. - The examination was otherwise normal. - No specimens collected. Recommendation: - Patient has a contact number available for emergencies. The signs and symptoms of potential delayed complications were discussed with the patient. Return to normal activities tomorrow. Written discharge instructions were provided to the patient. - Return to my office at the next available appointment. Ministerio Nowak DO 02/14/2017 10:20:46 AM This report has been signed electronically. Number of Addenda: 0 Note Initiated On: 02/14/2017 9:06 AM Estimated Blood Loss: Estimated blood loss: none.
== END | disposition home or self-care (01) ==
LOC: M OPP 08:00
PROVIDERS: ATTEND Surgery
DX: Z09 Encounter for follow-up examination after completed treatment for conditions other than malignant neoplasm (principal); K57.30 Diverticulosis of large intestine without perforation or abscess without bleeding; R00.8 Other abnormalities of heart beat; I48.91 Unspecified atrial fibrillation; I10 Essential (primary) hypertension; E78.5 Hyperlipidemia, unspecified; R60.0 Localized edema; K57.92 Diverticulitis of intestine, part unspecified, without perforation or abscess without bleeding; R12 Heartburn; R23.3 Spontaneous ecchymoses; M19.90 Unspecified osteoarthritis, unspecified site; M54.9 Dorsalgia, unspecified; Z85.828 Personal history of other malignant neoplasm of skin; G43.909 Migraine, unspecified, not intractable, without status migrainosus; Z92.3 Personal history of irradiation; J45.909 Unspecified asthma, uncomplicated; G40.909 Epilepsy, unspecified, not intractable, without status epilepticus; Z87.891 Personal history of nicotine dependence; Z88.0 Allergy status to penicillin; Z88.8 Allergy status to other drugs, medicaments and biological substances; Z91.048 Other nonmedicinal substance allergy status; Z79.82 Long term (current) use of aspirin; Z79.899 Other long term (current) drug therapy; Z86.73 Personal history of transient ischemic attack (TIA), and cerebral infarction without residual deficits

== ENCOUNTER 2017-03-20 09:30 | Inpatient (IN) | payer MEDICARE, OTHER ==
[~2017-03-20] VITALS: Ht 154.9 cm; Wt 92.5 kg
[~2017-03-20 09:30] MED LIST changes: -METR500T10 PO; -NEOM50TA PO
--- NOTE | 2017-03-22 12:53 | HPE ---
DATE OF ADMISSION: 03/23/2017 CHIEF COMPLAINT: Colostomy. HISTORY OF PRESENT ILLNESS: The patient is a 76-year-old female well known to me. She had an exploratory laparotomy with sigmoid resection for perforated bowel and a colostomy performed on 09/06/2016. Postoperatively, she did well. She most recently saw me and had a workup done for colostomy reversal including a colonoscopy through her stoma into her rectal pouch on 02/14/2017. The plan is to schedule for an elective colostomy reversal on 03/23/2017. She will be admitted to the hospital postoperatively for management with the intent of going home as soon as she has return of bowel function. No complaints currently, tolerating diet. Ostomy is working appropriately without any problems and bowels have been moving well. PAST MEDICAL HISTORY: 1. Gastroesophageal reflux disease. 2. Obesity. 3. History of tobacco abuse. 4. Chronic back pain. 5. Epilepsy. 6. Hyperlipidemia. 7. High blood pressure. 8. Migraines. 9. History of a transient ischemic attack (TIA). PAST SURGICAL HISTORY: 1. Hysterectomy. 2. Shoulder arthroscopy times two. 3. Bowel resection and last colonoscopy 02/14/2017. FAMILY HISTORY: Noncontributory. ALLERGIES: PENICILLINS and IODINE DYE. SOCIAL HISTORY: Denies any current drug, alcohol, tobacco abuse. FAMILY HISTORY: Noncontributory. REVIEW OF SYSTEMS: Pertinent positives and negatives as stated in the history of present illness (HPI). PHYSICAL EXAMINATION: GENERAL: Patient is alert and oriented times three. VITAL SIGNS: Blood pressure 148/82. HEENT: Pupils equal, round, and react to light and accommodation. HEART: S1, S2, regular rate and rhythm. LUNGS: Clear to auscultation bilaterally. ABDOMEN: Soft, nontender, nondistended. Midline incisions intact without any signs of infection. The ostomy is pink and patent. EXTREMITIES: No clubbing, cyanosis or edema. LABORATORY DATA: None obtained. ASSESSMENT AND PLAN: The patient is a 76-year-old female status post colostomy for perforated diverticulitis. She had a colonoscopy done which showed that there are no signs of any polyps or other masses. Recommendation is to go ahead and proceed with colostomy reversal. Plan will be to do this laparoscopically, possible open. The risks include but are not limited to bleeding, infection, hernia formation, damage to surrounding structures, anastomotic leak, repeat colostomy and need for further surgery. She understands the risks and signed consent. She has already had her cardiac clearance completed and plan is to perform the procedure tomorrow, 03/23/2017.
[2017-03-23] MEDS ORDERED: BUPIVACAINE/EPIN 0.25% 30 ML VIAL As Ordered ONE (07:31)
[2017-03-23] MEDS ORDERED: ERTAPENEM SODIUM 1 GM in NS MINI-BAG PLUS 50 ML IV ONE (11:30)
[2017-03-23] MEDS ORDERED: LR 1,000 ML IV ONE (11:30)
[2017-03-23] MEDS ORDERED: GABA-283 PO (12:27)
[2017-03-23] MEDS ORDERED: NEOM50TA PO (12:37)
[2017-03-23] MEDS ORDERED: METR500T10 PO (12:37)
[2017-03-23] MEDS ORDERED: MIDAZOLAM INJ 2 MG/2 ML VIAL (J2250) As Ordered ONE (15:10)
[2017-03-23] MEDS ORDERED: fentaNYL 250 MCG/5 ML INJECTION (J3010) As Ordered ONE (15:10)
[2017-03-23] MEDS ORDERED: ROCURONIUM BROMIDE 50 MG/5 ML VIAL As Ordered ONE (15:16)
[2017-03-23] MEDS ORDERED: METOCLOPRAMIDE INJ 10MG/2ML VIAL (J2765) As Ordered ONE (15:16)
[2017-03-23] MEDS ORDERED: dexameTHASONE 4 MG/ML 1ML VIAL (J1100) As Ordered ONE (15:16)
[2017-03-23] MEDS ORDERED: PROPOFOL 200 MG/20 ML VIAL As Ordered ONE (15:16)
[2017-03-23] MEDS ORDERED: DESFLURANE 240 ML INHALANT As Ordered ONE ×2 (17:08→17:42)
[2017-03-23] MEDS ORDERED: SEVOFLURANE INHAL SOLN 250 ML BTL As Ordered ONE (17:24)
[2017-03-23] MEDS ORDERED: HYDROmorphone HCL 2 MG/ML 1ML VIAL (J1170) As Ordered ONE (17:42)
[2017-03-23] MEDS ORDERED: PHENYLEPHRINE INJ 10MG/ML VIAL (J2370) As Ordered ONE (17:57)
[2017-03-23] MEDS: SIMVASTATIN 40 MG TAB PO SCH (21:00)
[2017-03-23] MEDS: NORTRIPTYLINE 25 MG CAP PO SCH (21:00)
[2017-03-23] MEDS: GABAPENTIN 400 MG CAP PO SCH (21:00)
[2017-03-23] MEDS: SENOKOT S TAB PO SCH (21:00)
[2017-03-23] MEDS: LACOSAMIDE 50 MG TAB (VIMPAT) PO SCH (21:00)
[2017-03-23] MEDS: TOPIRAMATE (TopAMAX) 100 MG TAB PO SCH (21:00)
[2017-03-23] MEDS ORDERED: SUGAMMADEX SODIUM 500 MG/5 ML VIAL (BRIDION) As Ordered ONE (21:02)
[2017-03-23] MEDS ORDERED: ONDANSETRON 4MG/2ML VIAL (J2405) As Ordered ONE (21:02)
[2017-03-23] MEDS ORDERED: ONDANSETRON 4MG/2ML VIAL (J2405) IV PRN ×2 (21:45→22:30)
[2017-03-23] MEDS: HEPARIN SOD (PORCINE) 5000 UNITS/ML VIAL SC SCH (22:00)
[2017-03-23] MEDS ORDERED: PERCOCET 5MG/325MG TAB PO PRN (22:30)
[2017-03-23] MEDS ORDERED: fentaNYL 100 MCG/2 ML INJECTION (J3010) IV PRN (22:30)
[2017-03-23] MEDS ORDERED: LR 1,000 ML IV SCH (22:30)
[2017-03-23] MEDS ORDERED: HYDROmorphone HCL 1 MG/ML SYRINGE (J1170) IV PRN (22:30)
[2017-03-23 23:30] VITALS: BP 195/53
[2017-03-24] VITALS: BP 160/71
[2017-03-24] MEDS: LR 1,000 ML IV SCH ×2 (00:32→11:30)
[2017-03-24 01:00] VITALS: BP 182/72
[2017-03-24] MEDS: KETOROLAC 30 MG/ML VIAL (J1885) IV PRN ×2 (01:02→10:08)
[2017-03-24 02:00] VITALS: BP 184/76
[2017-03-24] MEDS: HEPARIN SOD (PORCINE) 5000 UNITS/ML VIAL SC SCH ×3 (05:22→20:19)
[2017-03-24 06:00] VITALS: BP 146/65
[2017-03-24 06:46] LABS: MEAN CORPUSCULAR HGB CONC 31.3 g/dl (32.0-36.5); MEAN CORPUSCULAR VOLUME 86.5 fl (80.0-96.0); RED CELL DISTRIBUTION WIDTH 15.8 % (11.5-14.5); WHITE BLOOD COUNT 12.1 K/mm3 (4.0-10.0)
[2017-03-24 06:47] LABS: ANION GAP 10 MEQ/L (8-16); BLOOD UREA NITROGEN 13 MG/DL (7-18); CALCIUM LEVEL 7.7 MG/DL (8.8-10.2); CARBON DIOXIDE LEVEL 25 MEQ/L (21-32); CHLORIDE LEVEL 106 MEQ/L (98-107); CREATININE FOR GFR 0.89 MG/DL (0.55-1.02); GLOMERULAR FILTRATION RATE > 60.0 (>39); GLUCOSE, FASTING 127 MG/DL (83-110); MAGNESIUM LEVEL 1.9 MG/DL (1.8-2.4); POTASSIUM SERUM 3.6 MEQ/L (3.5-5.1); SODIUM LEVEL 141 MEQ/L (136-145)
[2017-03-24] MEDS: FUROSEMIDE 20 MG TAB PO SCH (08:56)
[2017-03-24] MEDS: CYANOCOBALAMIN 500 MCG TAB PO SCH (08:56)
[2017-03-24] MEDS: NORTRIPTYLINE 25 MG CAP PO SCH ×2 (08:56→20:18)
[2017-03-24] MEDS: TOPIRAMATE (TopAMAX) 100 MG TAB PO SCH ×2 (08:57→20:18)
[2017-03-24] MEDS: amLODIPine 5 MG TAB PO SCH (08:57)
[2017-03-24] MEDS: SENOKOT S TAB PO SCH ×2 (08:57→20:19)
[2017-03-24] MEDS: VITAMIN D 1,000 INTERNATIONAL UNITS TABLET PO SCH (08:57)
[2017-03-24] MEDS: ASPIRIN 81 MG ENTERIC TAB PO SCH (08:57)
[2017-03-24] MEDS: GABAPENTIN 400 MG CAP PO SCH ×2 (08:57→20:19)
[2017-03-24] MEDS: LACOSAMIDE 50 MG TAB (VIMPAT) PO SCH ×2 (08:57→20:18)
[2017-03-24] MEDS: VALSARTAN 80 MG TAB (DIOVAN) PO SCH (08:58)
[2017-03-24] MEDS: PANTOPRAZOLE 40MG INJ (PROTONIX) (C9113) IV SCH (08:58)
[2017-03-24] MEDS ORDERED: NS 1,000 ML IV ONE (10:30)
[2017-03-24] MEDS: MORPHINE 4 MG/ML 1ML SYRINGE IV PRN ×2 (13:04→20:31)
[2017-03-24] MEDS: ERTAPENEM SODIUM 1 GM in NS MINI-BAG PLUS 50 ML IV SCH (13:51)
[2017-03-24] MEDS: SIMVASTATIN 40 MG TAB PO SCH (20:19)
[2017-03-24 22:00] VITALS: BP 115/53
[2017-03-25] MEDS: HEPARIN SOD (PORCINE) 5000 UNITS/ML VIAL SC SCH ×3 (05:27→21:36)
[2017-03-25 06:00] VITALS: BP 120/52
[2017-03-25 06:51] LABS: MEAN CORPUSCULAR HEMOGLOBIN 26.5 pg (27.0-33.0); MEAN CORPUSCULAR HGB CONC 30.5 g/dl (32.0-36.5); RED CELL DISTRIBUTION WIDTH 15.9 % (11.5-14.5); WHITE BLOOD COUNT 11.2 K/mm3 (4.0-10.0)
[2017-03-25 06:58] LABS: ANION GAP 8 MEQ/L (8-16); BLOOD UREA NITROGEN 15 MG/DL (7-18); CALCIUM LEVEL 7.6 MG/DL (8.8-10.2); CARBON DIOXIDE LEVEL 26 MEQ/L (21-32); CHLORIDE LEVEL 106 MEQ/L (98-107); GLOMERULAR FILTRATION RATE > 60.0 (>39); GLUCOSE, FASTING 87 MG/DL (83-110); POTASSIUM SERUM 3.5 MEQ/L (3.5-5.1); SODIUM LEVEL 140 MEQ/L (136-145)
[2017-03-25] MEDS: NORTRIPTYLINE 25 MG CAP PO SCH ×2 (09:11→21:37)
[2017-03-25] MEDS: GABAPENTIN 400 MG CAP PO SCH ×2 (09:11→21:36)
[2017-03-25] MEDS: PANTOPRAZOLE 40MG INJ (PROTONIX) (C9113) IV SCH (09:11)
[2017-03-25] MEDS: LACOSAMIDE 50 MG TAB (VIMPAT) PO SCH ×2 (09:11→21:37)
[2017-03-25] MEDS: VALSARTAN 80 MG TAB (DIOVAN) PO SCH (09:11)
[2017-03-25] MEDS: VITAMIN D 1,000 INTERNATIONAL UNITS TABLET PO SCH (09:11)
[2017-03-25] MEDS: ASPIRIN 81 MG ENTERIC TAB PO SCH (09:11)
[2017-03-25] MEDS: SENOKOT S TAB PO SCH ×2 (09:12→21:37)
[2017-03-25] MEDS: FUROSEMIDE 20 MG TAB PO SCH (09:12)
[2017-03-25] MEDS: TOPIRAMATE (TopAMAX) 100 MG TAB PO SCH ×2 (09:12→21:37)
[2017-03-25] MEDS: CYANOCOBALAMIN 500 MCG TAB PO SCH (09:12)
[2017-03-25] MEDS: amLODIPine 5 MG TAB PO SCH (09:12)
[2017-03-25] MEDS ORDERED: NS 1,000 ML IV ONE (11:00)
[2017-03-25] MEDS: ERTAPENEM SODIUM 1 GM in NS MINI-BAG PLUS 50 ML IV SCH (11:03)
[2017-03-25] MEDS: LR 1,000 ML IV SCH ×2 (14:03→21:41)
[2017-03-25] MEDS: KETOROLAC 30 MG/ML VIAL (J1885) IV PRN ×2 (15:47→21:41)
[2017-03-25] MEDS: SIMVASTATIN 40 MG TAB PO SCH (21:37)
[2017-03-25 22:00] VITALS: BP 121/56
[2017-03-26] MEDS: LR 1,000 ML IV SCH (05:53)
[2017-03-26] MEDS: HEPARIN SOD (PORCINE) 5000 UNITS/ML VIAL SC SCH ×3 (05:53→20:30)
[2017-03-26 06:00] VITALS: BP 136/63
[2017-03-26 06:47] LABS: MEAN CORPUSCULAR HEMOGLOBIN 26.6 pg (27.0-33.0); MEAN CORPUSCULAR HGB CONC 30.8 g/dl (32.0-36.5); MEAN CORPUSCULAR VOLUME 86.4 fl (80.0-96.0); RED CELL DISTRIBUTION WIDTH 16.1 % (11.5-14.5); WHITE BLOOD COUNT 7.3 K/mm3 (4.0-10.0)
[2017-03-26 07:11] LABS: ANION GAP 11 MEQ/L (8-16); BLOOD UREA NITROGEN 15 MG/DL (7-18); CALCIUM LEVEL 8.4 MG/DL (8.8-10.2); CARBON DIOXIDE LEVEL 25 MEQ/L (21-32); CHLORIDE LEVEL 117 MEQ/L (98-107); CREATININE FOR GFR 0.82 MG/DL (0.55-1.02); GLOMERULAR FILTRATION RATE > 60.0 (>39); GLUCOSE, FASTING 69 MG/DL (83-110); POTASSIUM SERUM 3.4 MEQ/L (3.5-5.1); SODIUM LEVEL 153 MEQ/L (136-145)
[2017-03-26] MEDS ORDERED: KCL 10MEQ IN 100ML SWI (KRUN) 10 MEQ in APPROPRIATE DILUENT 1 EA IV SCH ×2 (08:00)
--- NOTE | 2017-03-26 08:07 | RO ---
DATE OF PROCEDURE: 03/23/2017 PREPROCEDURE DIAGNOSIS: Colostomy. POSTPROCEDURE DIAGNOSIS: Colostomy reversal with extensive adhesions. PROCEDURE: Laparoscopic lysis of adhesions, followed by exploratory laparotomy with extensive lysis of adhesions, repair of small bowel enterotomies times four, small bowel resection with primary anastomosis and Meliza's reversal. SURGEON: Dr. Nowak TRIBAL JUDGE: Dr. Hill ANESTHESIA: General. ESTIMATED BLOOD LOSS: 100. COMPLICATIONS: None. INDICATIONS FOR PROCEDURE The patient is a 76-year-old female who had a ruptured sigmoid colon last August due to perforated diverticulitis. She underwent a Meliza's pouch with colostomy then and she is coming in today for colostomy reversal. DESCRIPTION OF PROCEDURE: The patient brought back to operating room #6. After sufficient sedation, she was placed in the supine position with legs up in the stirrups. The Romero catheter was then placed. The abdomen and perineum were then prepped and draped, as well as having the ends of the ostomy closed with an #1 Prolene suture. Once this was completed, time-out was done to confirm proper patient and proper procedure. Next, a 5 mm incision made in the left lower quadrant. At Sierra's point, a Veress needle was inserted and the abdomen was insufflated to 15 mmHg. Next a 5 mm Optiview port was used to gain access to the abdomen. Once the abdomen was entered, there were extensive adhesions with small bowel and large bowel adhered to the anterior abdominal wall. I was unable to visualize the right side of the abdomen at that time and another 5 mm port was placed in the left lower quadrant. Using Enseal, some adhesions were carefully taken down to the point where another port could be placed in the right side. Once this was completed, we were able to do extensive lysis of adhesions laparoscopically, both surrounding the colostomy. Along the anterior abdominal wall from the umbilicus inferiorly all way into the pelvis, there were multiple loops of small bowel adhered tightly to each other, as well as to the abdominal wall, both in the lower abdomen and into the pelvis. After having a difficult time reaching into the pelvis and being able to differentiate one loop of bowel from another and after a couple enterotomies were created, decision made to open. Next, a lower midline incision was made from the pubic symphysis to the umbilicus. The abdomen was entered. Another 3 hours worth of at least of adhesiolysis had been completed, all the way down into the pelvis and trying to free up the small intestine from the rectal stump. Once this was completed, the rectal stump was intact. No injury had been created during taking down the adhesions. The small bowel was then carefully lysed and all the adhesions were taken out of it and the loops were freed all the way freeing the ligament of Treitz to the terminal ileum. Next, four separate enterotomies that were very small were carefully oversewn with #3-0 silk sutures. There was also an area with about three injuries that were close together. This entire section was just for resected all in one using a CHERYL 100 stapler to create a primary anastomosis. The area was removed. The #3-0 Vicryl suture was used to reapproximate the small bowel mesentery in this area as well. Once the small bowel resection and primary anastomosis was completed, the small bowel was examined one last time from end to end to confirm that there were no other enterotomies that had been missed. Once this was completed, the colostomy was taken down from the skin, it was circumferentially incised at the level the skin using cautery. I carefully dissected through the subcutaneous tissues to the abdomen. The distal stump was then resected. #1 Prolene was used to create a pursestring suture around the end of the colon and an EEA 29 stapler anvil was placed inside and tied in place with a pursestring suture. After this, the EEA stapler was placed into the rectum. The anvil was brought out. The anastomosis was created. The pelvis was then filled with saline. The air was insufflated through the rectum under pressure and there were no signs of any leakage. The two donuts on the end of the anvil also were fully intact. No signs or concerns of any anastomotic leak or injury. Next, a #19-Turkmen Chauncey drain was placed inside the pelvis overlying the anastomosis and brought out through the right lateral port site. The fascia at the colostomy site was closed with a running #1 Vicryl suture. Subcutaneous tissues were approximated with running #0 Vicryl suture. The skin was then loosely stapled. Midline incision was then closed with #1 looped PDS, both from top and bottom and tied in the middle. The skin was then closed with sancho. The other port sites were closed with sancho. The drain was sutured in place with silk suture. The abdomen was then cleaned and dried. 4x4 and tape were applied, thus ending the procedure. The patient tolerated the procedure well. She was extubated postop and transferred to the floor in stable condition.
[2017-03-26] MEDS: KCL 10MEQ IN D5/0.45NS 1000ML 1,000 ML IV SCH ×2 (08:41→23:39)
[2017-03-26] MEDS: PANTOPRAZOLE 40MG INJ (PROTONIX) (C9113) IV SCH (08:41)
[2017-03-26] MEDS: LACOSAMIDE 50 MG TAB (VIMPAT) PO SCH ×2 (08:42→20:30)
[2017-03-26] MEDS: VALSARTAN 80 MG TAB (DIOVAN) PO SCH (08:42)
[2017-03-26] MEDS: FUROSEMIDE 20 MG TAB PO SCH (08:42)
[2017-03-26] MEDS: SENOKOT S TAB PO SCH ×2 (08:42→20:31)
[2017-03-26] MEDS: CYANOCOBALAMIN 500 MCG TAB PO SCH (08:43)
[2017-03-26] MEDS: VITAMIN D 1,000 INTERNATIONAL UNITS TABLET PO SCH (08:43)
[2017-03-26] MEDS: TOPIRAMATE (TopAMAX) 100 MG TAB PO SCH ×2 (08:43→20:31)
[2017-03-26] MEDS: ASPIRIN 81 MG ENTERIC TAB PO SCH (08:43)
[2017-03-26] MEDS: NORTRIPTYLINE 25 MG CAP PO SCH ×2 (08:43→20:31)
[2017-03-26] MEDS: GABAPENTIN 400 MG CAP PO SCH ×2 (08:43→20:31)
[2017-03-26] MEDS: NORCO, ANEXSIA 5/325MG TABLET (HYDROcodone/ACETAMINOPHEN) PO PRN ×2 (08:44→13:09)
[2017-03-26] MEDS: amLODIPine 5 MG TAB PO SCH (08:44)
[2017-03-26] MEDS: ERTAPENEM SODIUM 1 GM in NS MINI-BAG PLUS 50 ML IV SCH (13:08)
[2017-03-26 14:00] VITALS: BP 126/58
[2017-03-26] MEDS: SIMVASTATIN 40 MG TAB PO SCH (20:31)
[2017-03-26 22:00] VITALS: BP 141/66
[2017-03-27 06:00] VITALS: BP 151/69
[2017-03-27] MEDS: HEPARIN SOD (PORCINE) 5000 UNITS/ML VIAL SC SCH ×3 (06:12→21:20)
[2017-03-27] MEDS: KCL 10MEQ IN D5/0.45NS 1000ML 1,000 ML IV SCH (07:36)
[2017-03-27 07:47] LABS: MEAN CORPUSCULAR HEMOGLOBIN 27.4 pg (27.0-33.0); MEAN CORPUSCULAR HGB CONC 31.8 g/dl (32.0-36.5); MEAN CORPUSCULAR VOLUME 86.1 fl (80.0-96.0); WHITE BLOOD COUNT 6.2 K/mm3 (4.0-10.0)
[2017-03-27 08:18] LABS: ANION GAP 9 MEQ/L (8-16); BLOOD UREA NITROGEN 10 MG/DL (7-18); CALCIUM LEVEL 8.1 MG/DL (8.8-10.2); CARBON DIOXIDE LEVEL 23 MEQ/L (21-32); CHLORIDE LEVEL 111 MEQ/L (98-107); CREATININE FOR GFR 0.77 MG/DL (0.55-1.02); GLOMERULAR FILTRATION RATE > 60.0 (>39); GLUCOSE, FASTING 84 MG/DL (83-110); POTASSIUM SERUM 3.2 MEQ/L (3.5-5.1); SODIUM LEVEL 143 MEQ/L (136-145)
[2017-03-27 08:30] VITALS: BP 131/61
[2017-03-27] MEDS: PANTOPRAZOLE 40MG INJ (PROTONIX) (C9113) IV SCH (09:00)
[2017-03-27] MEDS: ACETAMINOPHEN TAB 650MG DOSE (2X325MG) PO PRN (09:25)
[2017-03-27] MEDS: ASPIRIN 81 MG ENTERIC TAB PO SCH (09:26)
[2017-03-27] MEDS: VALSARTAN 80 MG TAB (DIOVAN) PO SCH (09:28)
[2017-03-27] MEDS: VITAMIN D 1,000 INTERNATIONAL UNITS TABLET PO SCH (09:29)
[2017-03-27] MEDS: GABAPENTIN 400 MG CAP PO SCH ×2 (09:29→21:20)
[2017-03-27] MEDS: CYANOCOBALAMIN 500 MCG TAB PO SCH (09:30)
[2017-03-27] MEDS: FUROSEMIDE 20 MG TAB PO SCH (09:31)
[2017-03-27] MEDS: LACOSAMIDE 50 MG TAB (VIMPAT) PO SCH ×2 (09:32→21:21)
[2017-03-27] MEDS: SENOKOT S TAB PO SCH ×2 (09:33→21:20)
[2017-03-27] MEDS: TOPIRAMATE (TopAMAX) 100 MG TAB PO SCH ×2 (09:33→21:21)
[2017-03-27] MEDS: amLODIPine 5 MG TAB PO SCH (09:34)
[2017-03-27] MEDS: NORTRIPTYLINE 25 MG CAP PO SCH ×2 (09:35→21:20)
[2017-03-27 10:20] VITALS: BP 131/61
[2017-03-27 13:37] VITALS: BP 140/62
[2017-03-27 14:00] VITALS: BP 146/64
[2017-03-27] MEDS: POTASSIUM CHLORIDE 10% LIQ 20 MEQ/15 ML UDC PO SCH ×2 (14:10→21:20)
[2017-03-27] MEDS: SIMVASTATIN 40 MG TAB PO SCH (21:20)
[2017-03-27] MEDS: NORCO, ANEXSIA 5/325MG TABLET (HYDROcodone/ACETAMINOPHEN) PO PRN (21:24)
[2017-03-27 22:00] VITALS: BP 175/76
[2017-03-28 06:00] VITALS: BP 136/65
[2017-03-28] MEDS: HEPARIN SOD (PORCINE) 5000 UNITS/ML VIAL SC SCH ×3 (06:05→20:25)
[2017-03-28 06:51] LABS: MEAN CORPUSCULAR HEMOGLOBIN 27.4 pg (27.0-33.0); MEAN CORPUSCULAR HGB CONC 31.5 g/dl (32.0-36.5); MEAN CORPUSCULAR VOLUME 87.1 fl (80.0-96.0); RED CELL DISTRIBUTION WIDTH 16.1 % (11.5-14.5); WHITE BLOOD COUNT 5.3 K/mm3 (4.0-10.0)
[2017-03-28 07:05] LABS: ANION GAP 9 MEQ/L (8-16); BLOOD UREA NITROGEN 10 MG/DL (7-18); CALCIUM LEVEL 8.5 MG/DL (8.8-10.2); CARBON DIOXIDE LEVEL 21 MEQ/L (21-32); CHLORIDE LEVEL 114 MEQ/L (98-107); CREATININE FOR GFR 0.83 MG/DL (0.55-1.02); GLOMERULAR FILTRATION RATE > 60.0 (>39); GLUCOSE, FASTING 91 MG/DL (83-110); POTASSIUM SERUM 3.9 MEQ/L (3.5-5.1); SODIUM LEVEL 144 MEQ/L (136-145)
[2017-03-28] MEDS: FUROSEMIDE 20 MG TAB PO SCH (10:03)
[2017-03-28] MEDS: CYANOCOBALAMIN 500 MCG TAB PO SCH (10:03)
[2017-03-28] MEDS: VALSARTAN 80 MG TAB (DIOVAN) PO SCH (10:04)
[2017-03-28] MEDS: TOPIRAMATE (TopAMAX) 100 MG TAB PO SCH ×2 (10:04→20:24)
[2017-03-28] MEDS: LACOSAMIDE 50 MG TAB (VIMPAT) PO SCH ×2 (10:04→20:23)
[2017-03-28] MEDS: NORTRIPTYLINE 25 MG CAP PO SCH ×2 (10:04→20:24)
[2017-03-28] MEDS: VITAMIN D 1,000 INTERNATIONAL UNITS TABLET PO SCH (10:04)
[2017-03-28] MEDS: NORCO, ANEXSIA 5/325MG TABLET (HYDROcodone/ACETAMINOPHEN) PO PRN ×2 (10:05→14:48)
[2017-03-28] MEDS: SENOKOT S TAB PO SCH ×2 (10:05→20:24)
[2017-03-28] MEDS: ASPIRIN 81 MG ENTERIC TAB PO SCH (10:05)
[2017-03-28] MEDS: amLODIPine 5 MG TAB PO SCH (10:05)
[2017-03-28] MEDS: GABAPENTIN 400 MG CAP PO SCH ×2 (10:06→20:24)
[2017-03-28] MEDS: POTASSIUM CHLORIDE 10 MEQ SR TABLET PO SCH ×2 (11:30→20:24)
[2017-03-28 14:00] VITALS: BP 146/62
[2017-03-28] MEDS: SIMVASTATIN 40 MG TAB PO SCH (20:24)
[2017-03-28] MEDS ORDERED: ONDANSETRON 4MG/2ML VIAL (J2405) IV PRN (21:00)
[2017-03-28] MEDS ORDERED: ONDANSETRON 4 MG TAB (S0181) PO PRN (21:45)
[2017-03-28 22:00] VITALS: BP 140/59
[2017-03-29] MEDS: HEPARIN SOD (PORCINE) 5000 UNITS/ML VIAL SC SCH ×3 (05:19→20:16)
[2017-03-29 06:00] VITALS: BP 168/86
[2017-03-29 06:49] LABS: MEAN CORPUSCULAR HEMOGLOBIN 27.4 pg (27.0-33.0); MEAN CORPUSCULAR HGB CONC 31.7 g/dl (32.0-36.5); MEAN CORPUSCULAR VOLUME 86.6 fl (80.0-96.0); RED CELL DISTRIBUTION WIDTH 16.2 % (11.5-14.5); WHITE BLOOD COUNT 6.6 K/mm3 (4.0-10.0)
[2017-03-29 06:57] LABS: ANION GAP 11 MEQ/L (8-16); BLOOD UREA NITROGEN 10 MG/DL (7-18); CALCIUM LEVEL 8.9 MG/DL (8.8-10.2); CARBON DIOXIDE LEVEL 21 MEQ/L (21-32); CHLORIDE LEVEL 112 MEQ/L (98-107); CREATININE FOR GFR 0.87 MG/DL (0.55-1.02); GLOMERULAR FILTRATION RATE > 60.0 (>39); GLUCOSE, FASTING 153 MG/DL (83-110); POTASSIUM SERUM 4.2 MEQ/L (3.5-5.1); SODIUM LEVEL 144 MEQ/L (136-145)
[2017-03-29] MEDS: POTASSIUM CHLORIDE 10 MEQ SR TABLET PO SCH ×3 (09:00→20:15)
[2017-03-29] MEDS: NORTRIPTYLINE 25 MG CAP PO SCH ×2 (09:31→20:15)
[2017-03-29] MEDS: CYANOCOBALAMIN 500 MCG TAB PO SCH (09:31)
[2017-03-29] MEDS: LACOSAMIDE 50 MG TAB (VIMPAT) PO SCH ×2 (09:32→20:15)
[2017-03-29] MEDS: GABAPENTIN 400 MG CAP PO SCH ×2 (09:32→20:15)
[2017-03-29] MEDS: TOPIRAMATE (TopAMAX) 100 MG TAB PO SCH ×2 (09:32→20:15)
[2017-03-29] MEDS: VALSARTAN 80 MG TAB (DIOVAN) PO SCH (09:32)
[2017-03-29] MEDS: amLODIPine 5 MG TAB PO SCH (09:33)
[2017-03-29] MEDS: FUROSEMIDE 20 MG TAB PO SCH (09:33)
[2017-03-29] MEDS: VITAMIN D 1,000 INTERNATIONAL UNITS TABLET PO SCH (09:33)
[2017-03-29] MEDS: NORCO, ANEXSIA 5/325MG TABLET (HYDROcodone/ACETAMINOPHEN) PO PRN ×2 (09:33→18:11)
[2017-03-29] MEDS: SENOKOT S TAB PO SCH ×2 (09:33→20:15)
[2017-03-29] MEDS: ASPIRIN 81 MG ENTERIC TAB PO SCH (09:33)
--- NOTE | 2017-03-29 13:40 | REP ---
ABDOMEN, THREE VIEWS: HISTORY: Ileus. COMPARISON: 09/12/2016 Air is present in small and large intestine. Several air fluid levels are present. There are no dilated loops of intestine. There is no pneumoperitoneum. A surgical drain and clips are present. IMPRESSION: Nonspecific bowel gas pattern. Signed by Sabino Atkinson MD 03/29/2017 01:40 P
[2017-03-29 14:00] VITALS: BP 152/68
[2017-03-29] MEDS: KCL 10MEQ IN D5/0.45NS 1000ML 1,000 ML IV SCH ×2 (14:18→23:00)
[2017-03-29] MEDS ORDERED: CHLORASEPTIC SPRAY MT PRN (17:00)
[2017-03-29] MEDS: SIMVASTATIN 40 MG TAB PO SCH (20:15)
[2017-03-29 22:00] VITALS: BP 166/81
[2017-03-30] MEDS: HEPARIN SOD (PORCINE) 5000 UNITS/ML VIAL SC SCH ×3 (05:10→20:56)
[2017-03-30 06:00] VITALS: BP 144/82
[2017-03-30 06:50] LABS: MEAN CORPUSCULAR HEMOGLOBIN 27.1 pg (27.0-33.0); MEAN CORPUSCULAR HGB CONC 30.3 g/dl (32.0-36.5); MEAN CORPUSCULAR VOLUME 89.4 fl (80.0-96.0); RED CELL DISTRIBUTION WIDTH 16.4 % (11.5-14.5); WHITE BLOOD COUNT 9.9 K/mm3 (4.0-10.0)
[2017-03-30 06:52] LABS: ANION GAP 9 MEQ/L (8-16); BLOOD UREA NITROGEN 12 MG/DL (7-18); CALCIUM LEVEL 8.4 MG/DL (8.8-10.2); CARBON DIOXIDE LEVEL 22 MEQ/L (21-32); CHLORIDE LEVEL 113 MEQ/L (98-107); CREATININE FOR GFR 0.83 MG/DL (0.55-1.02); GLOMERULAR FILTRATION RATE > 60.0 (>39); GLUCOSE, FASTING 126 MG/DL (83-110); MAGNESIUM LEVEL 2.1 MG/DL (1.8-2.4); POTASSIUM SERUM 3.8 MEQ/L (3.5-5.1); SODIUM LEVEL 144 MEQ/L (136-145)
[2017-03-30] MEDS: KCL 10MEQ IN D5/0.45NS 1000ML 1,000 ML IV SCH ×2 (09:00→18:49)
[2017-03-30] MEDS: VITAMIN D 1,000 INTERNATIONAL UNITS TABLET PO SCH (12:19)
[2017-03-30] MEDS: NORTRIPTYLINE 25 MG CAP PO SCH ×2 (12:19→20:55)
[2017-03-30] MEDS: POTASSIUM CHLORIDE 10 MEQ SR TABLET PO SCH ×2 (12:19→20:55)
[2017-03-30] MEDS: TOPIRAMATE (TopAMAX) 100 MG TAB PO SCH ×2 (12:19→20:55)
[2017-03-30] MEDS: LACOSAMIDE 50 MG TAB (VIMPAT) PO SCH ×2 (12:20→21:00)
[2017-03-30] MEDS: NORCO, ANEXSIA 5/325MG TABLET (HYDROcodone/ACETAMINOPHEN) PO PRN ×2 (12:20→18:50)
[2017-03-30] MEDS: GABAPENTIN 400 MG CAP PO SCH ×2 (12:20→20:55)
[2017-03-30] MEDS: SENOKOT S TAB PO SCH ×2 (12:20→21:00)
[2017-03-30] MEDS: CYANOCOBALAMIN 500 MCG TAB PO SCH (12:20)
[2017-03-30] MEDS: ASPIRIN 81 MG ENTERIC TAB PO SCH (12:20)
[2017-03-30] MEDS: FUROSEMIDE 20 MG TAB PO SCH (12:20)
[2017-03-30] MEDS: amLODIPine 5 MG TAB PO SCH (12:22)
[2017-03-30] MEDS: VALSARTAN 80 MG TAB (DIOVAN) PO SCH (12:22)
[2017-03-30 14:00] VITALS: BP 160/64
[2017-03-30] MEDS: SIMVASTATIN 40 MG TAB PO SCH (20:56)
[2017-03-30] MEDS: zolPIDEM TARTRATE 5 MG TAB PO PRN (20:56)
[2017-03-30 22:00] VITALS: BP 160/84
[2017-03-31] MEDS: KCL 10MEQ IN D5/0.45NS 1000ML 1,000 ML IV SCH ×3 (05:42→22:29)
[2017-03-31 06:00] VITALS: BP 165/67
[2017-03-31] MEDS: HEPARIN SOD (PORCINE) 5000 UNITS/ML VIAL SC SCH ×3 (06:00→20:29)
[2017-03-31 09:00] VITALS: BP 142/70
[2017-03-31] MEDS: GABAPENTIN 400 MG CAP PO SCH ×2 (09:20→20:27)
[2017-03-31] MEDS: LACOSAMIDE 50 MG TAB (VIMPAT) PO SCH ×2 (09:20→20:27)
[2017-03-31] MEDS: SENOKOT S TAB PO SCH ×2 (09:20→20:27)
[2017-03-31] MEDS: amLODIPine 5 MG TAB PO SCH (09:21)
[2017-03-31] MEDS: ASPIRIN 81 MG ENTERIC TAB PO SCH (09:21)
[2017-03-31] MEDS: FUROSEMIDE 20 MG TAB PO SCH (09:22)
[2017-03-31] MEDS: NORTRIPTYLINE 25 MG CAP PO SCH ×2 (09:22→20:26)
[2017-03-31] MEDS: POTASSIUM CHLORIDE 10 MEQ SR TABLET PO SCH ×2 (09:23→20:26)
[2017-03-31] MEDS: CYANOCOBALAMIN 500 MCG TAB PO SCH (09:24)
[2017-03-31] MEDS: TOPIRAMATE (TopAMAX) 100 MG TAB PO SCH ×2 (09:29→20:26)
[2017-03-31] MEDS: VITAMIN D 1,000 INTERNATIONAL UNITS TABLET PO SCH (09:29)
[2017-03-31] MEDS: VALSARTAN 80 MG TAB (DIOVAN) PO SCH (09:30)
[2017-03-31] MEDS: NORCO, ANEXSIA 5/325MG TABLET (HYDROcodone/ACETAMINOPHEN) PO PRN (13:37)
[2017-03-31 14:00] VITALS: BP 148/80
[2017-03-31] MEDS: SIMVASTATIN 40 MG TAB PO SCH (20:26)
[2017-03-31] MEDS: zolPIDEM TARTRATE 5 MG TAB PO PRN (20:26)
[2017-03-31 22:00] VITALS: BP 172/74
[2017-04-01 06:00] VITALS: BP 146/67
[2017-04-01] MEDS: HEPARIN SOD (PORCINE) 5000 UNITS/ML VIAL SC SCH ×3 (06:00→21:59)
[2017-04-01] MEDS: KCL 10MEQ IN D5/0.45NS 1000ML 1,000 ML IV SCH ×2 (07:32→16:47)
[2017-04-01] MEDS: NORCO, ANEXSIA 5/325MG TABLET (HYDROcodone/ACETAMINOPHEN) PO PRN ×2 (07:33→20:20)
[2017-04-01] MEDS: POTASSIUM CHLORIDE 10 MEQ SR TABLET PO SCH ×2 (09:00→20:20)
[2017-04-01] MEDS: SENOKOT S TAB PO SCH ×2 (09:55→20:11)
[2017-04-01] MEDS: GABAPENTIN 400 MG CAP PO SCH ×2 (09:55→20:11)
[2017-04-01] MEDS: amLODIPine 5 MG TAB PO SCH (09:55)
[2017-04-01] MEDS: ASPIRIN 81 MG ENTERIC TAB PO SCH (09:56)
[2017-04-01] MEDS: NORTRIPTYLINE 25 MG CAP PO SCH ×2 (09:56→20:11)
[2017-04-01] MEDS: TOPIRAMATE (TopAMAX) 100 MG TAB PO SCH ×2 (09:56→20:13)
[2017-04-01] MEDS: VALSARTAN 80 MG TAB (DIOVAN) PO SCH (09:56)
[2017-04-01] MEDS: CYANOCOBALAMIN 500 MCG TAB PO SCH (09:56)
[2017-04-01] MEDS: VITAMIN D 1,000 INTERNATIONAL UNITS TABLET PO SCH (09:57)
[2017-04-01] MEDS: LACOSAMIDE 50 MG TAB (VIMPAT) PO SCH ×2 (09:57→20:12)
[2017-04-01] MEDS: FUROSEMIDE 20 MG TAB PO SCH (09:58)
[2017-04-01] MEDS: SIMETHICONE 80 MG CHEW TAB PO SCH ×3 (12:57→20:12)
[2017-04-01] MEDS: SIMVASTATIN 40 MG TAB PO SCH (20:12)
[2017-04-01 22:00] VITALS: BP 133/60
[2017-04-02] MEDS: HEPARIN SOD (PORCINE) 5000 UNITS/ML VIAL SC SCH ×3 (05:41→20:35)
[2017-04-02 06:00] VITALS: BP 135/60
[2017-04-02] MEDS: CYANOCOBALAMIN 500 MCG TAB PO SCH (07:46)
[2017-04-02] MEDS: TOPIRAMATE (TopAMAX) 100 MG TAB PO SCH ×2 (07:46→20:35)
[2017-04-02] MEDS: NORTRIPTYLINE 25 MG CAP PO SCH ×2 (07:46→20:36)
[2017-04-02] MEDS: VALSARTAN 80 MG TAB (DIOVAN) PO SCH (07:47)
[2017-04-02] MEDS: LACOSAMIDE 50 MG TAB (VIMPAT) PO SCH ×2 (07:47→20:36)
[2017-04-02] MEDS: VITAMIN D 1,000 INTERNATIONAL UNITS TABLET PO SCH (07:48)
[2017-04-02] MEDS: SIMETHICONE 80 MG CHEW TAB PO SCH ×5 (07:48→20:36)
[2017-04-02] MEDS: ASPIRIN 81 MG ENTERIC TAB PO SCH (07:48)
[2017-04-02] MEDS: KCL 10MEQ IN D5/0.45NS 1000ML 1,000 ML IV SCH (07:48)
[2017-04-02] MEDS: GABAPENTIN 400 MG CAP PO SCH ×2 (07:49→20:34)
[2017-04-02] MEDS: SENOKOT S TAB PO SCH ×2 (07:49→20:35)
[2017-04-02] MEDS: amLODIPine 5 MG TAB PO SCH (07:49)
[2017-04-02] MEDS: FUROSEMIDE 20 MG TAB PO SCH (07:50)
[2017-04-02 09:24] LABS: ANION GAP 8 MEQ/L (8-16); BLOOD UREA NITROGEN 5 MG/DL (7-18); CALCIUM LEVEL 8.3 MG/DL (8.8-10.2); CARBON DIOXIDE LEVEL 25 MEQ/L (21-32); CHLORIDE LEVEL 110 MEQ/L (98-107); CREATININE FOR GFR 0.88 MG/DL (0.55-1.02); GLOMERULAR FILTRATION RATE > 60.0 (>39); GLUCOSE, FASTING 97 MG/DL (83-110); POTASSIUM SERUM 3.9 MEQ/L (3.5-5.1); SODIUM LEVEL 143 MEQ/L (136-145)
[2017-04-02 14:00] VITALS: BP 173/73
[2017-04-02 14:30] LABS: ANION GAP 10 MEQ/L (8-16); BLOOD UREA NITROGEN 5 MG/DL (7-18); CALCIUM LEVEL 8.5 MG/DL (8.8-10.2); CARBON DIOXIDE LEVEL 23 MEQ/L (21-32); CHLORIDE LEVEL 110 MEQ/L (98-107); CREATININE FOR GFR 0.89 MG/DL (0.55-1.02); GLOMERULAR FILTRATION RATE > 60.0 (>39); GLUCOSE, FASTING 98 MG/DL (83-110); SODIUM LEVEL 143 MEQ/L (136-145)
[2017-04-02 19:56] LABS: ANION GAP 7 MEQ/L (8-16); BLOOD UREA NITROGEN 5 MG/DL (7-18); CALCIUM LEVEL 8.5 MG/DL (8.8-10.2); CARBON DIOXIDE LEVEL 26 MEQ/L (21-32); CHLORIDE LEVEL 108 MEQ/L (98-107); CREATININE FOR GFR 0.94 MG/DL (0.55-1.02); GLOMERULAR FILTRATION RATE > 60.0 (>39); GLUCOSE, FASTING 90 MG/DL (83-110); POTASSIUM SERUM 3.7 MEQ/L (3.5-5.1); SODIUM LEVEL 141 MEQ/L (136-145)
[2017-04-02] MEDS: SIMVASTATIN 40 MG TAB PO SCH (20:34)
[2017-04-02] MEDS: ACETAMINOPHEN TAB 650MG DOSE (2X325MG) PO PRN (20:36)
[2017-04-02 22:00] VITALS: BP 137/63
[2017-04-03 01:58] LABS: ANION GAP 10 MEQ/L (8-16); BLOOD UREA NITROGEN 5 MG/DL (7-18); CALCIUM LEVEL 8.3 MG/DL (8.8-10.2); CARBON DIOXIDE LEVEL 23 MEQ/L (21-32); CHLORIDE LEVEL 108 MEQ/L (98-107); CREATININE FOR GFR 0.84 MG/DL (0.55-1.02); GLOMERULAR FILTRATION RATE > 60.0 (>39); GLUCOSE, FASTING 99 MG/DL (83-110); POTASSIUM SERUM 3.6 MEQ/L (3.5-5.1); SODIUM LEVEL 141 MEQ/L (136-145)
[2017-04-03] MEDS: HEPARIN SOD (PORCINE) 5000 UNITS/ML VIAL SC SCH ×3 (05:57→20:43)
[2017-04-03 06:00] VITALS: BP 140/69
[2017-04-03 08:03] LABS: MEAN CORPUSCULAR HEMOGLOBIN 27.5 pg (27.0-33.0); MEAN CORPUSCULAR HGB CONC 30.8 g/dl (32.0-36.5); MEAN CORPUSCULAR VOLUME 89.2 fl (80.0-96.0); RED CELL DISTRIBUTION WIDTH 16.2 % (11.5-14.5); WHITE BLOOD COUNT 14.4 K/mm3 (4.0-10.0)
[2017-04-03] MEDS: ASPIRIN 81 MG ENTERIC TAB PO SCH (08:16)
[2017-04-03] MEDS: NORTRIPTYLINE 25 MG CAP PO SCH ×2 (08:16→20:41)
[2017-04-03] MEDS: VITAMIN D 1,000 INTERNATIONAL UNITS TABLET PO SCH (08:16)
[2017-04-03] MEDS: CYANOCOBALAMIN 500 MCG TAB PO SCH (08:16)
[2017-04-03] MEDS: TOPIRAMATE (TopAMAX) 100 MG TAB PO SCH ×2 (08:16→20:42)
[2017-04-03] MEDS: LACOSAMIDE 50 MG TAB (VIMPAT) PO SCH ×2 (08:16→20:42)
[2017-04-03 08:17] LABS: ANION GAP 10 MEQ/L (8-16); BLOOD UREA NITROGEN 6 MG/DL (7-18); CALCIUM LEVEL 8.5 MG/DL (8.8-10.2); CARBON DIOXIDE LEVEL 21 MEQ/L (21-32); CHLORIDE LEVEL 108 MEQ/L (98-107); CREATININE FOR GFR 0.89 MG/DL (0.55-1.02); GLOMERULAR FILTRATION RATE > 60.0 (>39); GLUCOSE, FASTING 95 MG/DL (83-110); POTASSIUM SERUM 3.7 MEQ/L (3.5-5.1); SODIUM LEVEL 139 MEQ/L (136-145)
[2017-04-03] MEDS: VALSARTAN 80 MG TAB (DIOVAN) PO SCH (08:17)
[2017-04-03] MEDS: SENOKOT S TAB PO SCH ×2 (08:18→20:42)
[2017-04-03] MEDS: FUROSEMIDE 20 MG TAB PO SCH (08:18)
[2017-04-03] MEDS: GABAPENTIN 400 MG CAP PO SCH ×2 (08:18→20:41)
[2017-04-03] MEDS: SIMETHICONE 80 MG CHEW TAB PO SCH ×4 (08:18→20:42)
[2017-04-03] MEDS: amLODIPine 5 MG TAB PO SCH (08:18)
[2017-04-03] MEDS: ERTAPENEM SODIUM 1 GM in NS MINI-BAG PLUS 50 ML IV SCH (09:22)
[2017-04-03 14:00] VITALS: BP 128/48
[2017-04-03 14:46] LABS: ANION GAP 8 MEQ/L (8-16); BLOOD UREA NITROGEN 7 MG/DL (7-18); CALCIUM LEVEL 8.2 MG/DL (8.8-10.2); CARBON DIOXIDE LEVEL 24 MEQ/L (21-32); CHLORIDE LEVEL 108 MEQ/L (98-107); CREATININE FOR GFR 0.84 MG/DL (0.55-1.02); GLOMERULAR FILTRATION RATE > 60.0 (>39); GLUCOSE, FASTING 82 MG/DL (83-110); POTASSIUM SERUM 3.8 MEQ/L (3.5-5.1); SODIUM LEVEL 140 MEQ/L (136-145)
--- NOTE | 2017-04-03 15:50 | REP ---
Portable chest x-ray: Single view. History: Leukocytosis. Comparison chest x-ray October 04, 2016. Findings: There is mild linear fibrosis in the left base. The lung jett are otherwise clear. Pleural angles are sharp. Heart is not enlarged. No significant bony abnormality is appreciated. Impression: Mild linear fibrosis left base. Otherwise no acute disease. Orthopedic metallic anchors are seen in the left humeral head. Signed by Angelito Romero MD 04/03/2017 04:40 P
[2017-04-03 20:11] LABS: ANION GAP 8 MEQ/L (8-16); BLOOD UREA NITROGEN 8 MG/DL (7-18); CALCIUM LEVEL 8.3 MG/DL (8.8-10.2); CARBON DIOXIDE LEVEL 25 MEQ/L (21-32); CHLORIDE LEVEL 109 MEQ/L (98-107); GLOMERULAR FILTRATION RATE > 60.0 (>39); GLUCOSE, FASTING 85 MG/DL (83-110); POTASSIUM SERUM 3.6 MEQ/L (3.5-5.1); SODIUM LEVEL 142 MEQ/L (136-145)
[2017-04-03] MEDS: zolPIDEM TARTRATE 5 MG TAB PO PRN (20:42)
[2017-04-03] MEDS: SIMVASTATIN 40 MG TAB PO SCH (20:42)
[2017-04-03 22:00] VITALS: BP 173/72
[2017-04-04] MEDS: HEPARIN SOD (PORCINE) 5000 UNITS/ML VIAL SC SCH ×2 (05:40→14:09)
[2017-04-04 05:44] LABS: MEAN CORPUSCULAR HEMOGLOBIN 27.2 pg (27.0-33.0); MEAN CORPUSCULAR HGB CONC 31.4 g/dl (32.0-36.5); MEAN CORPUSCULAR VOLUME 86.8 fl (80.0-96.0); RED CELL DISTRIBUTION WIDTH 16.5 % (11.5-14.5); WHITE BLOOD COUNT 8.2 K/mm3 (4.0-10.0)
[2017-04-04 05:55] LABS: ANION GAP 9 MEQ/L (8-16); BLOOD UREA NITROGEN 9 MG/DL (7-18); CALCIUM LEVEL 7.9 MG/DL (8.8-10.2); CARBON DIOXIDE LEVEL 23 MEQ/L (21-32); CHLORIDE LEVEL 109 MEQ/L (98-107); CREATININE FOR GFR 0.85 MG/DL (0.55-1.02); GLOMERULAR FILTRATION RATE > 60.0 (>39); GLUCOSE, FASTING 78 MG/DL (83-110); MAGNESIUM LEVEL 2.1 MG/DL (1.8-2.4); POTASSIUM SERUM 3.3 MEQ/L (3.5-5.1); SODIUM LEVEL 141 MEQ/L (136-145)
[2017-04-04 06:00] VITALS: BP 165/60
[2017-04-04] MEDS ORDERED: POTASSIUM CHLORIDE 10 MEQ SR TABLET PO ONE (07:45)
[2017-04-04 08:08] VITALS: BP 165/60
[2017-04-04] MEDS: SIMETHICONE 80 MG CHEW TAB PO SCH ×2 (08:08→14:09)
[2017-04-04] MEDS: amLODIPine 5 MG TAB PO SCH (08:08)
[2017-04-04] MEDS: GABAPENTIN 400 MG CAP PO SCH (08:08)
[2017-04-04] MEDS: VALSARTAN 80 MG TAB (DIOVAN) PO SCH (08:09)
[2017-04-04] MEDS: ASPIRIN 81 MG ENTERIC TAB PO SCH (08:09)
[2017-04-04] MEDS: NORTRIPTYLINE 25 MG CAP PO SCH (08:09)
[2017-04-04] MEDS: CYANOCOBALAMIN 500 MCG TAB PO SCH (08:09)
[2017-04-04] MEDS: FUROSEMIDE 20 MG TAB PO SCH (08:09)
[2017-04-04] MEDS: LACOSAMIDE 50 MG TAB (VIMPAT) PO SCH (08:09)
[2017-04-04] MEDS: NORCO, ANEXSIA 5/325MG TABLET (HYDROcodone/ACETAMINOPHEN) PO PRN ×2 (08:10→14:09)
[2017-04-04] MEDS: SENOKOT S TAB PO SCH (08:10)
[2017-04-04] MEDS: TOPIRAMATE (TopAMAX) 100 MG TAB PO SCH (08:10)
[2017-04-04] MEDS: VITAMIN D 1,000 INTERNATIONAL UNITS TABLET PO SCH (08:10)
[2017-04-04] MEDS: ERTAPENEM SODIUM 1 GM in NS MINI-BAG PLUS 50 ML IV SCH (11:02)
[2017-04-04] MEDS ORDERED: SENN1TAB2 PO (15:09)
[2017-04-04] MEDS ORDERED: NORCOTAB PO (15:09)
--- NOTE | 2017-04-06 04:01 | DSES ---
DATE OF ADMISSION: 03/23/2017 DATE OF DISCHARGE: 04/04/2017 ADMISSION DIAGNOSIS: Colostomy. DISCHARGE DIAGNOSIS: Colostomy status post colostomy reversal complicated by postoperative ileus. HOSPITAL COURSE: The patient is a 76-year-old female well-known to me for history of a ruptured sigmoid colon last August due to perforated diverticulitis. She underwent a Meliza's procedure, then she came in on 03/23 for elective colostomy reversal. Her procedure was very complicated. She had extensive lysis of adhesions which resulted in small bowel resection, as well as multiple enterotomies that were oversewn and she did eventually end up with the colostomy reversal with primary anastomosis as well. It was a very lengthy procedure, took about 5-6 hours. However, she has tolerated it very well. Postoperatively, her pain was controlled with oral and intravenous (IV) medications. She did not require any patient-controlled analgesia (APPLICATION TRAINER) pump or epidurals. Her urine output was good. Romero catheter was removed postoperative day 2. Her nasogastric (NG) tube was also removed postoperative day 2 due to having good bowel sounds and passing flatus and some small bowel movements. She was started on a diet of clear liquids. She continued to do well. She was ambulating in the halls. She was not ambulating as well as I had liked, so I did get physical therapy to evaluate her and they were concerned about her ability to go up and down stairs and ability for discharge. By postoperative day 6, she was starting to have nausea and vomiting, so her NG tube was replaced. She was put back on a nothing by mouth diet and her abdomen was distended. She had a postoperative ileus. Labs were still normal at this time, normal white count, normal vital signs, just this abdominal distention. She was kept with the NG tube for 4 days. By postoperative day 11, she was restarted back on to a regular diet, continued to tolerate it well. However, at this point her white count jumped up to 14.4. We checked a chest x-ray due to leukocytosis which was normal. No signs of pneumonia. No signs of any infection anywhere. Her incisions were all clean, dry and intact. No drainage of any kind. She had a Chauncey drain in the entire postoperative course that was serosanguineous. No signs of any infection or purulent drainage from there. Drain was then removed, which helped her pain significantly on the right side, as well as by the next day her white count also came back down to 8.2. Postoperative day 12, she had a physical therapy evaluation again, which demonstrated that she was stable to go up and down stairs and was stable for discharge home. She was tolerating regular diet and having good bowel movements. Pain was controlled and plans for discharge home. PLAN: Discharge home today, 04/04/2017. Followup with me in the office in 1 week for staple removal. She was given a script for oral pain pills, as well as stool softeners. It is okay to shower and bathe. No lifting more than 20 pounds and will followup with me in the office in a week.
== END 2017-04-04 16:05 | disposition home or self-care (01) | DRG 330 ==
LOC: M OR 03-23 11:17 → M MS5PR 03-23 23:30
PROVIDERS: ADMIT Surgery; ATTEND Surgery
PROC: 0DNW4ZZ Release Peritoneum, Percutaneous Endoscopic Approach (ICD-10-PCS; 2017-03-23)
PROC: 0DQ80ZZ Repair Small Intestine, Open Approach (ICD-10-PCS; 2017-03-23)
PROC: 0DB80ZZ Excision of Small Intestine, Open Approach (ICD-10-PCS; principal; 2017-03-23 13:15)
DX: Z43.3 Encounter for attention to colostomy (principal); K91.71 Accidental puncture and laceration of a digestive system organ or structure during a digestive system procedure; K56.7 Ileus, unspecified; I10 Essential (primary) hypertension; K21.9 Gastro-esophageal reflux disease without esophagitis; E66.9 Obesity, unspecified; G40.909 Epilepsy, unspecified, not intractable, without status epilepticus; K66.0 Peritoneal adhesions (postprocedural) (postinfection); E78.5 Hyperlipidemia, unspecified; G43.909 Migraine, unspecified, not intractable, without status migrainosus; M54.9 Dorsalgia, unspecified; Z90.49 Acquired absence of other specified parts of digestive tract; Z88.0 Allergy status to penicillin; Z88.8 Allergy status to other drugs, medicaments and biological substances; Z86.73 Personal history of transient ischemic attack (TIA), and cerebral infarction without residual deficits; Z87.891 Personal history of nicotine dependence; Z68.34 Body mass index [BMI] 34.0-34.9, adult; Z79.82 Long term (current) use of aspirin; Z79.899 Other long term (current) drug therapy

== ENCOUNTER → 2017-03-20 | Outpatient (CLI) | payer MEDICARE, OTHER ==
[~2017-03-20] MED LIST changes: -COLA100C PO; +COLA100C3 PO; -LIDOCAINE 2% INJ 100 MG/5 ML SDV (FOR ANES.) As Ordered ONE; +METR500T10 PO; +NEOM50TA PO; -NS 1,000 ML IV SCH; -PROPOFOL 200 MG/20 ML VIAL As Ordered ONE; +VALS1TAB47 PO
--- NOTE | 2017-03-21 07:25 | ECGEPIP ---
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
== END ==
LOC: M EKG 10:24
PROVIDERS: ATTEND Anesthesiology
DX: R94.31 Abnormal electrocardiogram [ECG] [EKG] (principal)